=== PATIENT | male | born 1935 | race Caucasian/White ===

== ENCOUNTER → 2016-07-27 | Outpatient (CLI) | payer BC ==
[~2016-07-27] VITALS: Ht 177.8 cm; Wt 100.7 kg
[~2016-07-27] MED LIST: AMLO-110 PO; ASPI81TA82 PO; BCTCR/30 EXT; FLNIN NAE; LISI-792 PO; METF-382 PO; METO1TAB68 PO; MULTTAB45 PO; SIMV20TA2 PO
[2016-07-27 14:18] VITALS: BP 171/76; PULSE 56; Ht 177.8 cm; Wt 100.7 kg
== END | disposition home or self-care (01) ==
LOC: C.NEUR 13:09
PROVIDERS: ATTEND Internal Medicine Pulmonary Disease
DX: G47.33 Obstructive sleep apnea (adult) (pediatric) (principal)

== ENCOUNTER → 2016-09-11 | Outpatient (CLI) | payer BC ==
[~2016-09-11] MED LIST changes: +ASPI81TA28 PO; +FLUT0.15 NAE; +GLIM4TAB2 PO; +METO-479 PO; -METO1TAB68 PO
[2016-09-11 12:00] LABS: BASO % 0.3 %; BASO ABS # 0.02 K/uL (0-0.2); COMPLETE YES; EOS % 1.4 %; HEMATOCRIT 41.3 % (42-52); IG% 0.5 %; LYMPH % 21.1 %; LYMPH ABS # 1.54 K/uL (1.2-3.4); MEAN CELL VOLUME 96.5 fL (80-100); MEAN CORPUSCULAR HEMOGLOBIN 31.5 pg (25-34); MEAN CORPUSCULAR HGB CONC 32.7 g/dl (32-36); MEAN PLATELET VOLUME 9.7 fL (7.4-10.4); MONO % 8.9 %; NEUT % 67.8 %; PLATELET COUNT 227 K/uL (130-400); RED BLOOD COUNT 4.28 M/uL (4.7-6.1)
[2016-09-11 13:06] LABS: ALT/SGPT 25 U/L (12-78); AST/SGOT 17 U/L (15-37); BLOOD UREA NITROGEN 23 mg/dl (7-18); CALCIUM 8.9 mg/dl (8.5-10.1); CARBON DIOXIDE 27 mmol/L (21-32); CHLORIDE 105 mmol/L (98-107); CHOLESTEROL 172 mg/dl (0-200); CHOLESTEROL/HDL RATIO 2.7; GLUCOSE 127 mg/dl (70-99); HDL CHOLESTEROL 64 mg/dl; LDL CHOLESTEROL CALCULATED 81 mg/dl; POTASSIUM 4.9 mmol/L (3.5-5.1); SODIUM 138 mmol/L (136-145); TRIGLYCERIDES 134 mg/dl (0-150); VERY LOW DENSITY LIPOPROT CALC 27 mg/dl
[2016-09-11 13:08] LABS: ALKALINE PHOSPHATASE 65 U/L (45-117)
[2016-09-11 14:07] LABS: ESTIMATED AVERAGE GLUCOSE 140 mg/dl; HA1C FLAG Normal (Normal)
== END | disposition home or self-care (01) ==
LOC: C.LABBFT 09:48
PROVIDERS: ATTEND Internal Medicine
DX: E11.9 Type 2 diabetes mellitus without complications (principal)

== ENCOUNTER → 2017-01-25 | Outpatient (CLI) | payer BC ==
[~2017-01-25] VITALS: Ht 177.8 cm; Wt 99.5 kg
[~2017-01-25] MED LIST changes: -ASPI81TA28 PO; -FLUT0.15 NAE; -GLIM4TAB2 PO; -METO-479 PO; +METO1TAB68 PO
[2017-01-25 15:08] VITALS: BP 148/74; PULSE 73; Ht 177.8 cm; Wt 99.5 kg
== END | disposition home or self-care (01) ==
LOC: C.NEUR 14:55
PROVIDERS: ATTEND Physician Assistant
DX: G47.33 Obstructive sleep apnea (adult) (pediatric) (principal)

== ENCOUNTER → 2017-03-08 | Outpatient (CLI) | payer BC ==
[2017-03-08 12:32] LABS: BASO % 0.1 %; BASO ABS # 0.01 K/uL (0-0.2); COMPLETE YES; EOS % 2.5 %; HEMATOCRIT 39.6 % (42-52); IG% 0.6 %; LYMPH % 17.6 %; LYMPH ABS # 1.36 K/uL (1.2-3.4); MEAN CELL VOLUME 96.4 fL (80-100); MEAN CORPUSCULAR HEMOGLOBIN 32.1 pg (25-34); MEAN CORPUSCULAR HGB CONC 33.3 g/dl (32-36); MEAN PLATELET VOLUME 9.8 fL (7.4-10.4); MONO % 12.9 %; NEUT % 66.3 %; PLATELET COUNT 234 K/uL (130-400); RED BLOOD COUNT 4.11 M/uL (4.7-6.1); WHITE BLOOD COUNT 7.74 K/uL (4.8-10.8)
[2017-03-08 13:02] LABS: ESTIMATED AVERAGE GLUCOSE 137 mg/dl; HA1C FLAG Normal (Normal)
[2017-03-08 13:15] LABS: ALT/SGPT 23 U/L (12-78); BLOOD UREA NITROGEN 27 mg/dl (7-18); BUN/CREATININE RATIO 19.4 (10-20); CALCIUM 8.8 mg/dl (8.5-10.1); CARBON DIOXIDE 26 mmol/L (21-32); CHLORIDE 104 mmol/L (98-107); CHOLESTEROL 165 mg/dl (0-200); GLUCOSE 115 mg/dl (70-99); SODIUM 136 mmol/L (136-145)
[2017-03-08 13:20] LABS: ALB/GLOB RATIO 0.9 (0.9-2); ALKALINE PHOSPHATASE 63 U/L (45-117); AST/SGOT 16 U/L (15-37); CHOLESTEROL/HDL RATIO 3.2; HDL CHOLESTEROL 51 mg/dl; LDL CHOLESTEROL CALCULATED 84 mg/dl; PROSTATE SPECIFIC ANTIGEN < 0.010 ng/ml (0.000-4.000); TRIGLYCERIDES 151 mg/dl (0-150); VERY LOW DENSITY LIPOPROT CALC 30 mg/dl
== END | disposition home or self-care (01) ==
LOC: C.LABBFT 08:22
PROVIDERS: ATTEND Internal Medicine
DX: E11.9 Type 2 diabetes mellitus without complications (principal)

== ENCOUNTER → 2017-05-07 | Day surgery (SDC) | payer BC ==
[2017-04-09 10:53] VITALS: Ht 177.8 cm; Wt 97.7 kg
[~2017-05-07] VITALS: Ht 177.8 cm; Wt 97.7 kg
[~2017-05-07] MED LIST changes: +500ML BSS 0.3ML EPI 1:1000PF IRRIG ONE; +ACETAMINOPHEN 325 MG TAB PO PRN; +AMVISC PLUS 0.8ML SYRINGE INT OCU ONE; +ASPI81TA28 PO; -ASPI81TA82 PO; +ATROPINE SULFATE 0.1 MG/ML 5ML SYR IV PRN; -BCTCR/30 EXT; +BSS FLUSH ONE; +EpHEDrine SULFATE INJ 50 MG/ML AMP IV PRN; +EpINEphrine INJ 1MG/ML AMP 1 MG/ML AMP ONE; -FLNIN NAE; +FLUT0.15 NAE; +GLIM4TAB2 PO; +LACTATED RINGER'S 1000ML 500 ML IV SCH; +LIDOCAINE 3.5% OPH GEL PER APPLICATION CHARGE ONE; +LIDOCAINE HCL 1% MPF 2 ML VIAL ONE; +METO-479 PO; -METO1TAB68 PO; +MIDAZOLAM HCL 1 MG/ML 2ML VIAL ONE; +OCUCOAT 1 ML SOLN IO ONE; +PHENYLEPHRINE HCL 10% OP SOLN PER DROP CHARGE OPL SCH; +POVIDONE-IODINE OP SOLN 30 ML BTL ONE; +PROPARACAINE 0.5% OP SOLN PER DROP CHARGE OPL SCH; +TOBRAMYCIN/DEXAMETHASONE OPH OINT PER APPLN CHARGE ONE
[2017-05-07] MEDS: PHENYLEPHRINE HCL 2.5% OP SOLN PER DROP CHARGE OPL SCH ×2 (06:56→07:06)
[2017-05-07] MEDS: TROPICAMIDE 1% OP SOLN PER DROP CHARGE OPL SCH ×2 (06:57→07:07)
[2017-05-07] MEDS: CYCLOPENTOLATE HCL 1% OP SOLN PER DROP CHARGE OPL SCH ×2 (06:58→07:08)
[2017-05-07] MEDS: KETOROLAC 0.5% OP SOLN PER DROP CHARGE OPL SCH ×2 (06:59→07:09)
[2017-05-07] MEDS: GATIFLOXACIN OP SOLN PER DROP CHARGE OPL SCH ×2 (07:00→07:10)
--- NOTE | 2017-05-07 07:49 | History & Physical Bridge - SC ---
H&P Re-Evaluation Bridge Note: I have examined the patient, reviewed the History & Physical and in the interval since the performance of the History & Physical I have noted the following changes of clinical significance: Diagnosis: Left Cataract Procedure: Left Cataract Removal with Lens Implant No changes noted
--- NOTE | 2017-05-07 08:22 | Discharge Instructions-SurgCtr ---
Discharge Instructions Date of Service May 07, 2017. Visit Reason for Visit: Left Cataract Discharge Discharge Diagnosis / Problem: cataract Discharge Goals Goal(s): Improve function Medications Stopped Medications Name(s): Metformin stopped 2 days ago Activity Recommendations Activity Limitations: per Instructions/Follow-up section Anesthesia . Post Anesthesia Instructions: If you have had General Anesthesia or IV Sedation: * Do not drive today. * Resume driving when surgeon permits. * Do not make important decisions or sign legal documents today. * Call surgeon for: 1. Temperature elevations greater than 101 degrees F. 2. Uncontrollable pain. 3. Excessive bleeding. 4. Persistent nausea and vomiting. 5. Medication intolerance (nausea, vomiting or rash). * For nausea and vomiting use only clear liquids such as: tea, soda, bouillon until nausea subsides, then gradually increase diet as tolerated. * If you have any concerns or questions, call your surgeon's office. If physician is unavailable and it is an emergency, call 911 or go to the nearest emergency room. . Diet Recommendations Home Diet: resume previous diet Procedures Procedures Performed: Left Cataract Phacoemulsification With Intraocular Lens Implant Pending Studies Studies pending at discharge: no Medical Emergencies . Who to Call and When: Medical Emergencies: If at any time you feel your situation is an emergency, please call 911 immediately. . Non-Emergent Contact Non-Emergency issues call your: [employer] . . "Provider Documentation" section prepared by Moi Siegel. .
--- NOTE | 2017-05-07 08:22 | [facility] Operative Report ---
Operative Report Date of Service May 07, 2017. Operative Report 1. PREOPERATIVE DIAGNOSIS: Cataract of the left eye. 2. POSTOPERATIVE DIAGNOSIS: Same. 3. PROCEDURE: Phacoemulsification with intraocular lens implantation of the left eye. SURGEON: Dr. Moi Siegel. ANESTHESIA: Topical Lidocaine gel, 1% Non- Preserved intracameral Lidocaine, and monitored intravenous sedation. INDICATIONS FOR THE PROCEDURE: The patient is a 81 - year-old male with a history of cataract of the left eye causing significant visual impairment. The details of the proposed procedure were explained to the patient who asked appropriate questions and following discussion of all risks, benefits and alternatives agreed to have the procedure done. 4. OPERATION AND FINDINGS: DESCRIPTION OF PROCEDURE: After informed consent was obtained, the patient was brought to the Operating Room at the [facility]. The patient was placed in a supine position and then the left eye was prepped and draped in the usual sterile fashion for intraocular surgery. A drop of topical Lidocaine gel was placed in the operative eye. A wire lid speculum was then placed in the fornices. A corneal paracentesis was then created temporally. The Non-Preserved Lidocaine was then instilled into the anterior chamber. The anterior chamber was then pressurized with viscoelastic. A 2.0 mm clear corneal incision was then created temporally. A cystotome was inserted into the anterior chamber and used to create a tear in the anterior lens capsule. This capsular tear was then used to create a small flap and the flap was dragged in a counterclockwise direction in order to create a continuous curvilinear capsulorrhexis. Hydrodissection was accomplished with balanced salt solution. Phacoemulsification of the lens nucleus was then performed in a standard horqai-txa-ylyayee technique. The phaco time was 22 seconds with an average power of 16 %. The remaining cortical material was removed using irrigation aspiration. The capsular bag was then filled with viscoelastic. A [employer]ch [employer] Lomb MI60L +22.5 diopters lens was then loaded into the injector and injected into the capsular bag. The remaining viscoelastic was removed with the irrigation aspiration handpiece. The wound was hydrated and then checked and found to be watertight. The intraocular pressure was checked and found to be adequate. The wire lid speculum was removed and the patient's face was cleaned and dried. TobraDex ointment was placed in the inferior fornix. The patient was discharged to the Recovery Room having tolerated the procedure well. There were no complications. The patient will be seen tomorrow in the office for follow-up. I attest to the content of the Intraoperative Record and any orders documented therein. Any exceptions are noted below.
--- NOTE | 2017-05-07 08:48 | Anesthesia Progress Nt - [facility] ---
Anesthesia Post Op Note Date & Time May 07, 2017 at 08:47 Vital Signs Pain Intensity: 0 Vital Signs Past 12 Hours Date Time Temp Pulse Resp B/P (MAP) Pulse Ox O2 Delivery O2 Flow Rate FiO2 05/07/17 08:30 36.6 61 16 168/83 (111) 95 Room Air 05/07/17 06:44 36.5 62 16 180/91 (120) 95 Room Air Notes Mental Status: alert / awake / arousable, participated in evaluation Pt Amnestic to Procedure: No Nausea / Vomiting: adequately controlled Pain: adequately controlled Airway Patency, RR, SpO2: stable & adequate BP & HR: stable & adequate Hydration State: stable & adequate Anesthetic Complications: no major complications apparent Non distressing recall as discussed preop
[2017-05-07 09:01] VITALS: BP 165/79; PULSE 56; TEMP 36.6; O2SAT 97
== END | disposition home or self-care (01) ==
LOC: X.SURG 06:36
PROVIDERS: ATTEND Ophthalmology
DX: E11.36 Type 2 diabetes mellitus with diabetic cataract (principal); E11.22 Type 2 diabetes mellitus with diabetic chronic kidney disease; I12.9 Hypertensive chronic kidney disease with stage 1 through stage 4 chronic kidney disease, or unspecified chronic kidney disease; N18.3 Chronic kidney disease, stage 3 (moderate); G47.33 Obstructive sleep apnea (adult) (pediatric); D64.9 Anemia, unspecified; Z79.899 Other long term (current) drug therapy

== ENCOUNTER → 2017-06-06 | Day surgery (SDC) | payer BC ==
[2017-05-14 13:50] VITALS: Ht 177.8 cm; Wt 97.7 kg
[~2017-06-06] VITALS: Ht 177.8 cm; Wt 97.7 kg
[~2017-06-06] MED LIST changes: +FENTANYL CITRATE INJ 50 MCG/1 ML 2 ML VIAL ONE; +HydrALAZINE HCL 20 MG/ML VIAL ONE; -MIDAZOLAM HCL 1 MG/ML 2ML VIAL ONE; -PHENYLEPHRINE HCL 10% OP SOLN PER DROP CHARGE OPL SCH; +PHENYLEPHRINE HCL 10% OP SOLN PER DROP CHARGE OPR SCH; -PROPARACAINE 0.5% OP SOLN PER DROP CHARGE OPL SCH; +PROPARACAINE 0.5% OP SOLN PER DROP CHARGE OPR SCH
[2017-06-06] MEDS: PHENYLEPHRINE HCL 2.5% OP SOLN PER DROP CHARGE OPR SCH ×2 (06:42→06:53)
[2017-06-06] MEDS: TROPICAMIDE 1% OP SOLN PER DROP CHARGE OPR SCH ×2 (06:43→06:54)
[2017-06-06] MEDS: CYCLOPENTOLATE HCL 1% OP SOLN PER DROP CHARGE OPR SCH ×2 (06:44→06:55)
[2017-06-06] MEDS: KETOROLAC 0.5% OP SOLN PER DROP CHARGE OPR SCH ×2 (06:45→06:56)
[2017-06-06] MEDS: GATIFLOXACIN OP SOLN PER DROP CHARGE OPR SCH ×2 (06:46→06:57)
--- NOTE | 2017-06-06 07:05 | History & Physical Bridge - SC ---
H&P Re-Evaluation Bridge Note: I have examined the patient, reviewed the History & Physical and in the interval since the performance of the History & Physical I have noted the following changes of clinical significance: No changes noted
--- NOTE | 2017-06-06 07:53 | [facility] Operative Report ---
Operative Report Date of Service Jun 06, 2017. Operative Report 1. PREOPERATIVE DIAGNOSIS: Cataract of the right eye. 2. POSTOPERATIVE DIAGNOSIS: Same. 3. PROCEDURE: Phacoemulsification with intraocular lens implantation of the right eye. SURGEON: Dr. Moi Siegel. ANESTHESIA: Topical Lidocaine gel, 1% Non- Preserved intracameral Lidocaine, and monitored intravenous sedation. INDICATIONS FOR THE PROCEDURE: The patient is a 81 - year-old male with a history of cataract of the right eye causing significant visual impairment. The details of the proposed procedure were explained to the patient who asked appropriate questions and following discussion of all risks, benefits and alternatives agreed to have the procedure done. 4. OPERATION AND FINDINGS: DESCRIPTION OF PROCEDURE: After informed consent was obtained, the patient was brought to the Operating Room at the [facility]. The patient was placed in a supine position and then the right eye was prepped and draped in the usual sterile fashion for intraocular surgery. A drop of topical Lidocaine gel was placed in the operative eye. A wire lid speculum was then placed in the fornices. A corneal paracentesis was then created temporally. The Non-Preserved Lidocaine was then instilled into the anterior chamber. The anterior chamber was then pressurized with viscoelastic. A 2.0 mm clear corneal incision was then created temporally. A cystotome was inserted into the anterior chamber and used to create a tear in the anterior lens capsule. This capsular tear was then used to create a small flap and the flap was dragged in a counterclockwise direction in order to create a continuous curvilinear capsulorrhexis. Hydrodissection was accomplished with balanced salt solution. Phacoemulsification of the lens nucleus was then performed in a standard otecoq-iqp-ituiqwa technique. The phaco time was 27 seconds with an average power of 6 %. The remaining cortical material was removed using irrigation aspiration. The capsular bag was then filled with viscoelastic. A Bausch [employer] Lomb MI60L +23.0 diopters lens was then loaded into the injector and injected into the capsular bag. The remaining viscoelastic was removed with the irrigation aspiration handpiece. The wound was hydrated and then checked and found to be watertight. The intraocular pressure was checked and found to be adequate. The wire lid speculum was removed and the patient's face was cleaned and dried. TobraDex ointment was placed in the inferior fornix. The patient was discharged to the Recovery Room having tolerated the procedure well. There were no complications. The patient will be seen tomorrow in the office for follow-up. I attest to the content of the Intraoperative Record and any orders documented therein. Any exceptions are noted below.
--- NOTE | 2017-06-06 07:54 | Discharge Instructions-SurgCtr ---
Discharge Instructions Date of Service Jun 06, 2017. Visit Reason for Visit: Cataract Right Eye Discharge Discharge Diagnosis / Problem: cataract Discharge Goals Goal(s): Improve function Medications Stopped Medications Name(s): metformin stopped- last dose saturday Activity Recommendations Activity Limitations: per Instructions/Follow-up section Anesthesia . Post Anesthesia Instructions: If you have had General Anesthesia or IV Sedation: * Do not drive today. * Resume driving when surgeon permits. * Do not make important decisions or sign legal documents today. * Call surgeon for: 1. Temperature elevations greater than 101 degrees F. 2. Uncontrollable pain. 3. Excessive bleeding. 4. Persistent nausea and vomiting. 5. Medication intolerance (nausea, vomiting or rash). * For nausea and vomiting use only clear liquids such as: tea, soda, bouillon until nausea subsides, then gradually increase diet as tolerated. * If you have any concerns or questions, call your surgeon's office. If physician is unavailable and it is an emergency, call 911 or go to the nearest emergency room. . Diet Recommendations Home Diet: resume previous diet Procedures Procedures Performed: Right Cataract Phacoemulsification With Intraocular Lens Implant Pending Studies Studies pending at discharge: no Medical Emergencies . Who to Call and When: Medical Emergencies: If at any time you feel your situation is an emergency, please call 911 immediately. . Non-Emergent Contact Non-Emergency issues call your: [employer] . . "Provider Documentation" section prepared by Moi Siegel. .
[2017-06-06 07:57] VITALS: TEMP 36.7
[2017-06-06 08:27] VITALS: BP 129/75; PULSE 61; O2SAT 96
== END | disposition home or self-care (01) ==
LOC: X.SURG 06:07
PROVIDERS: ATTEND Ophthalmology
DX: E11.36 Type 2 diabetes mellitus with diabetic cataract (principal); E11.22 Type 2 diabetes mellitus with diabetic chronic kidney disease; I12.9 Hypertensive chronic kidney disease with stage 1 through stage 4 chronic kidney disease, or unspecified chronic kidney disease; N18.3 Chronic kidney disease, stage 3 (moderate); D64.9 Anemia, unspecified; Z79.84 Long term (current) use of oral hypoglycemic drugs; Z79.899 Other long term (current) drug therapy; G47.33 Obstructive sleep apnea (adult) (pediatric); Z85.46 Personal history of malignant neoplasm of prostate

== ENCOUNTER → 2017-07-25 | Outpatient (CLI) | payer BC ==
[~2017-07-25] VITALS: Ht 177.8 cm; Wt 100.2 kg
[~2017-07-25] MED LIST changes: -500ML BSS 0.3ML EPI 1:1000PF IRRIG ONE; -ACETAMINOPHEN 325 MG TAB PO PRN; -AMVISC PLUS 0.8ML SYRINGE INT OCU ONE; -ATROPINE SULFATE 0.1 MG/ML 5ML SYR IV PRN; -BSS FLUSH ONE; -EpHEDrine SULFATE INJ 50 MG/ML AMP IV PRN; -EpINEphrine INJ 1MG/ML AMP 1 MG/ML AMP ONE; -FENTANYL CITRATE INJ 50 MCG/1 ML 2 ML VIAL ONE; -HydrALAZINE HCL 20 MG/ML VIAL ONE; -LACTATED RINGER'S 1000ML 500 ML IV SCH; -LIDOCAINE 3.5% OPH GEL PER APPLICATION CHARGE ONE; -LIDOCAINE HCL 1% MPF 2 ML VIAL ONE; -OCUCOAT 1 ML SOLN IO ONE; -PHENYLEPHRINE HCL 10% OP SOLN PER DROP CHARGE OPR SCH; -POVIDONE-IODINE OP SOLN 30 ML BTL ONE; -PROPARACAINE 0.5% OP SOLN PER DROP CHARGE OPR SCH; -TOBRAMYCIN/DEXAMETHASONE OPH OINT PER APPLN CHARGE ONE
[2017-07-25 13:34] VITALS: BP 143/76; PULSE 75; Ht 177.8 cm; Wt 100.2 kg
== END | disposition home or self-care (01) ==
LOC: C.NEUR 12:56
PROVIDERS: ATTEND Physician Assistant
DX: G47.33 Obstructive sleep apnea (adult) (pediatric) (principal)

== ENCOUNTER → 2017-09-05 | Outpatient (CLI) | payer BC ==
[2017-09-05 12:35] LABS: BASO % 0.2 %; BASO ABS # 0.01 K/uL (0-0.2); EOS % 2.1 %; EOS ABS # 0.14 K/uL (0-0.5); HEMATOCRIT 40.5 % (42-52); HEMOGLOBIN 13.4 g/dL (14.0-18.0); IG# 0.03 K/uL (0.00-0.02); LYMPH % 25.3 %; LYMPH ABS # 1.65 K/uL (1.2-3.4); MEAN CORPUSCULAR HEMOGLOBIN 31.8 pg (25-34); MEAN CORPUSCULAR HGB CONC 33.1 g/dl (32-36); MEAN PLATELET VOLUME 9.7 fL (7.4-10.4); MONO % 11.9 %; MONO ABS # 0.78 K/uL (0.11-0.59); NEUT ABS # 3.92 K/uL (1.4-6.5); PLATELET COUNT 235 K/uL (130-400); RED CELL DISTRIBUTION WIDTH CV 13.3 % (11.5-14.5); RED CELL DISTRIBUTION WIDTH SD 45.7 fL (36.4-46.3); WHITE BLOOD COUNT 6.53 K/uL (4.8-10.8)
[2017-09-05 13:02] LABS: HEMOGLOBIN A1C 6.8 % (4.5-5.6)
[2017-09-05 13:36] LABS: ALBUMIN 3.8 gm/dl (3.4-5.0); ALT/SGPT 31 U/L (12-78); AST/SGOT 22 U/L (15-37); BLOOD UREA NITROGEN 26 mg/dl (7-18); CALCIUM 9.1 mg/dl (8.5-10.1); CARBON DIOXIDE 27 mmol/L (21-32); CREATININE 1.45 mg/dl (0.60-1.40); GLUCOSE 123 mg/dl (70-99); POTASSIUM 4.9 mmol/L (3.5-5.1); SODIUM 134 mmol/L (136-145)
[2017-09-05 13:47] LABS: ALKALINE PHOSPHATASE 67 U/L (45-117); CHOLESTEROL 159 mg/dl (0-200); LDL CHOLESTEROL CALCULATED 80 mg/dl; TOTAL PROTEIN 8.1 gm/dl (6.4-8.2)
== END | disposition home or self-care (01) ==
LOC: C.LABBFT 09:23
PROVIDERS: ATTEND Internal Medicine
DX: I10 Essential (primary) hypertension (principal); E78.5 Hyperlipidemia, unspecified; G47.33 Obstructive sleep apnea (adult) (pediatric); E11.9 Type 2 diabetes mellitus without complications; D64.9 Anemia, unspecified

== ENCOUNTER → 2017-09-26 | Outpatient (CLI) | payer BC ==
[~2017-09-26] MED LIST changes: +GLC/500 PO; +HYDR0.75 PO; +LEVO1TAB33 PO; +PRED10TA
--- NOTE | 2017-09-26 11:16 | DIAGNOSTIC IMAGING REPORT ---
CHEST 2 VIEWS ROUTINE HISTORY: 82 years-old Male J18.9 Community acquired pneumonia acute pneumonia COMPARISON: Chest radiographs 09/15/2015, CTA chest 10/06/2015 TECHNIQUE: PA and lateral views of the chest FINDINGS: Cardiomediastinal and hilar silhouettes are within normal limits. No pneumothorax or pleural effusion. There are subsegmental alveolar opacities of the basal right lower lobe. The left lung is clear. Degenerative changes of the shoulders and spine. Lungs appear grossly intact. IMPRESSION: Subsegmental alveolar opacities of the basal right lower lobe are suspicious for pneumonia in the appropriate clinical setting. The above report was generated using voice recognition software. It may contain grammatical, syntax or spelling errors. Electronically signed by: Nawaf Sheridan M.D. 09/26/2017 11:15 AM Dictated Date/Time: 09/26/2017 11:13 AM
== END | disposition home or self-care (01) ==
LOC: C.RAD1850 11:01
PROVIDERS: ATTEND Nurse Practitioner
DX: J18.9 Pneumonia, unspecified organism (principal)

== ENCOUNTER 2017-09-28 08:19 | Inpatient (IN) | payer BC, OTHER ==
[~2017-09-28] VITALS: Ht 177.8 cm; Wt 95.0 kg
[~2017-09-28 08:19] MED LIST changes: -GLC/500 PO; -HYDR0.75 PO; -LEVO1TAB33 PO; -PRED10TA
[2017-09-28] MEDS ORDERED: ALBUT/IPRATROP 3MG/0.5MG NEB 3 ML VIAL INH STA (08:37)
[2017-09-28] MEDS ORDERED: GLC/500 PO (09:11)
[2017-09-28] MEDS ORDERED: HYDR0.75 PO (09:11)
[2017-09-28] MEDS ORDERED: LEVO1TAB33 PO (09:11)
[2017-09-28] MEDS ORDERED: PRED10TA (09:11)
--- NOTE | 2017-09-28 09:11 | EMERGENCY ROOM VISIT NOTE ---
History Report prepared by Julian: [facility] Under the Supervision of: Dr. Song Blakcmon D.O. First contact with patient: 08:28 Chief Complaint: RESPIRATORY PROBLEMS Stated Complaint: DIFFICULTY BREATHING History of Present Illness The patient is a 82 year old male who presents to the Emergency Room with complaints of worsening respiratory problems that began 10 days ago. Patient states that he feels congested and has a productive cough. Patient states he has intermittent chills. He denies coughing up blood. Patient states that he has a history of similar symptoms. Pertinent past medical history includes bronchitis. Patient states that he had an X-ray done two days ago that showed pneumonia. He states that he was discharged with Levaquin, Prednisone, and cough medication. Patient states that he was originally started on an inhaler. He states that he did not take Levaquin before arriving at the ED. He denies fevers, nausea, or vomiting. Patient denies a history of clots in his legs or lungs. He denies leg pain or swelling. He denies chest pain. Patient states that he lives at home and denies being exposed to anything that could have caused his symptoms. Patient states that he has seen Pat TRINIDAD in [place] recently. Source of History: patient Onset: 10 days ago Position: other (Lungs) Timing: worsening Modifying Factors (Relieving): other (None) Associated Symptoms: + chills, + cough (Productive), No fevers, No chest pain, No nausea, No vomiting Review of Systems See HPI for pertinent positives & negatives. A total of 10 systems reviewed and were otherwise negative. Past Medical & Surgical Medical Problems: (1) Acute bronchitis (2) Anemia (3) Atrial fibrillation (4) Closed fracture of pelvis Family History Omitted secondary to age. Social History Smoking Status: Never Smoker Marital Status: Housing Status: lives with family Occupation Status: retired Current/Historical Medications Scheduled Amlodipine (Norvasc), 5 MG PO QAM Aspirin (Aspirin Ec), 81 MG PO QAM Glimepiride (Glimepiride), 4 MG PO DAILY Hydrocodone/Homatropine (Hydromet), 5 ML PO Q4H Levofloxacin (Levaquin), 500 MG PO DAILY Lisinopril (Zestril), 20 MG PO QAM Metformin Hcl (Glucophage), 500 MG PO BID Metoprolol Succinate (Toprol Xl), 100 MG PO QAM Multiple Vitamin (Multiple Vitamin), 1 TABLET PO QAM Simvastatin (Zocor), 20 MG PO QPM Scheduled PRN Fluticasone Propionate (Nasal) (Flonase Allergy Relief), 1 SPRAY GLORIA DAILY PRN for SINUS CONGESTION Miscellaneous Medications Prednisone (Prednisone) Allergies Coded Allergies: Nystatin (Verified Allergy, Unknown, UNKNOWN, 09/28/17) Triamcinolone (Verified Allergy, Unknown, UNKNOWN, 09/28/17) Physical Exam Vital Signs Date Time Temp Pulse Resp B/P (MAP) Pulse Ox O2 Delivery O2 Flow Rate FiO2 09/28/17 10:36 94 Room Air 09/28/17 09:49 92 20 136/82 94 Room Air 09/28/17 08:59 90 09/28/17 08:53 95 Room Air 09/28/17 08:53 95 Room Air 09/28/17 08:23 36.5 89 20 132/78 96 Room Air Physical Exam GENERAL: Patient is awake, alert, and in no acute distress. Patient is resting comfortably and showing no signs of anxiety EYES: The conjunctivae are clear. The pupils are round and reactive. EARS, NOSE, MOUTH AND THROAT: The nose is without any evidence of any deformity. Mucous membranes are moist tongue is midline NECK: The neck is nontender and supple. RESPIRATORY: Lung sounds are diminished throughout with rales in the right lung bases. Expiratory wheezing noted in both upper lung fox. CARDIOVASCULAR: Regular rate and rhythm noted there no murmurs rubs or gallops normal S1 normal S2 GASTROINTESTINAL: The abdomen is soft. Bowel sounds are present in all quadrants. Abdomen is nontender MUSCULOSKELETAL/EXTREMITIES: There is no evidence of gross deformity full range of motion is noted in the hips and shoulders SKIN: Pedal edema bilaterally. There is no obvious evidence of any rash. There are no petechiae, pallor or cyanosis noted. NEUROLOGIC: Patient is awake alert and oriented x3. Medical Decision & Procedures ER Provider Diagnostic Interpretation: Radiology results as stated below per my review and radiologist interpretation: CHEST ONE VIEW PORTABLE CLINICAL HISTORY: 82 years-old Male presenting with EVALUATE RESPIRATORY DISTRESS.DYSPNEA. TECHNIQUE: Portable upright AP view of the chest was obtained. COMPARISON: 09/26/2017. FINDINGS: Cardiomediastinal silhouette normal. Mildly low lung volumes. No focal opacity. Previously suggested right basilar opacity is no longer present. No large pleural effusion or pneumothorax. Degenerative changes of the thoracic spine. Upper abdomen normal. IMPRESSION: 1. No acute cardiopulmonary disease. Electronically signed by: Ye Coyle M.D. 09/28/2017 9:14 AM Laboratory Results 09/28/17 08:50 Red Blood Count 4.05, Mean Corpuscular Volume 93.8, Mean Corpuscular Hemoglobin 32.3, Mean Corpuscular Hemoglobin Concent 34.5, Mean Platelet Volume 8.9, Neutrophils (%) (Auto) 75.6, Lymphocytes (%) (Auto) 11.3, Monocytes (%) (Auto) 10.8, Eosinophils (%) (Auto) 0.1, Basophils (%) (Auto) 0.1, Neutrophils # (Auto ) 11.63, Lymphocytes # (Auto) 1.74, Monocytes # (Auto) 1.67, Eosinophils # (Auto ) 0.02, Basophils # (Auto) 0.02 09/28/17 08:50 Test 09/28/17 08:50 White Blood Count 15.40 K/uL (4.8-10.8) Red Blood Count 4.05 M/uL (4.7-6.1) Hemoglobin 13.1 g/dL (14.0-18.0) Hematocrit 38.0 % (42-52) Mean Corpuscular Volume 93.8 fL (80-100) Mean Corpuscular Hemoglobin 32.3 pg (25-34) Mean Corpuscular Hemoglobin Concent 34.5 g/dl (32-36) Platelet Count 324 K/uL (130-400) Mean Platelet Volume 8.9 fL (7.4-10.4) Neutrophils (%) (Auto) 75.6 % Lymphocytes (%) (Auto) 11.3 % Monocytes (%) (Auto) 10.8 % Eosinophils (%) (Auto) 0.1 % Basophils (%) (Auto) 0.1 % Neutrophils # (Auto) 11.63 K/uL (1.4-6.5) Lymphocytes # (Auto) 1.74 K/uL (1.2-3.4) Monocytes # (Auto) 1.67 K/uL (0.11-0.59) Eosinophils # (Auto) 0.02 K/uL (0-0.5) Basophils # (Auto) 0.02 K/uL (0-0.2) RDW Standard Deviation 45.1 fL (36.4-46.3) RDW Coefficient of Variation 13.2 % (11.5-14.5) Immature Granulocyte % (Auto) 2.1 % Immature Granulocyte # (Auto) 0.32 K/uL (0.00-0.02) Prothrombin Time 9.6 SECONDS (9.0-12.0) Prothromb Time International Ratio 0.9 (0.9-1.1) Activated Partial Thromboplast Time 22.6 SECONDS (21.0-31.0) Partial Thromboplastin Ratio 0.9 Anion Gap 10.0 mmol/L (3-11) Est Creatinine Clear Calc Drug Dose 38.2 ml/min Estimated GFR () 42.3 Estimated GFR (Non- 36.5 BUN/Creatinine Ratio 21.7 (10-20) Calcium Level 8.7 mg/dl (8.5-10.1) Magnesium Level 2.5 mg/dl (1.8-2.4) Total Bilirubin 0.6 mg/dl (0.2-1) Aspartate Amino Transf (AST/SGOT) 24 U/L (15-37) Alanine Aminotransferase (ALT/SGPT) 47 U/L (12-78) Alkaline Phosphatase 64 U/L (45-117) Troponin I < 0.015 ng/ml (0-0.045) Pro-B-Type Natriuretic Peptide 7059 pg/ml (0-1800) Total Protein 7.9 gm/dl (6.4-8.2) Albumin 3.1 gm/dl (3.4-5.0) Globulin 4.8 gm/dl (2.5-4.0) Albumin/Globulin Ratio 0.7 (0.9-2) Thyroid Stimulating Hormone (TSH) 0.656 uIu/ml (0.300-4.500) Laboratory results per my review. Medications Administered Medications (Trade) Dose Ordered Sig/Arnaldo Route Start Time Stop Time Status Last Admin Dose Admin Albuterol/ Ipratropium (Duoneb) 3 ml NOW STAT INH 09/28/17 08:37 09/28/17 08:38 DC 09/28/17 08:53 3 ML Doxycycline Hyclate (Vibramycin Cap) 100 mg NOW STAT PO 09/28/17 11:18 09/28/17 11:30 DC 09/28/17 13:09 100 MG Guaifenesin (Mucinex Contr Rel Tab) 1,200 mg 1118 ONCE PO 09/28/17 11:18 09/28/17 11:30 DC 09/28/17 13:09 1,200 MG ECG Per My Interpretation Indication: SOB/dyspnea Rate (beats per minute): 102 Rhythm: atrial fibrillation Findings: PVC (PVCs noted), RBBB (RBBB pattern noted) Comparison ECG Date: 02/25/13 Change: Changes are new. ED Course 0830: The patient was evaluated in room B10. A complete history and physical examination were performed. 0837: Duoneb 3ml INH 1023: Upon reevaluation, the patient will be further evaluated. I discussed results and treatment plan with him. He verbalizes agreement and understanding. I spoke with [place]. Bhatt of the [facility] The patient will be evaluated for further management and care. Medical Decision Prior records/ancillary studies reviewed. Triage Nursing notes reviewed. Additional history obtained from the family. The patient's history was concerning for respiratory difficulties. Differential diagnosis: Etiologies such as infections, reactive airway disease, pneumonia, pneumothorax , COPD, CHF, cardiac ischemia, pulmonary embolism, musculoskeletal, gastrointestinal, as well as others were entertained. The patient is an 82-year-old male who presented to the emergency department for an evaluation of difficulty breathing. The patient was started on antibiotic for presumed bronchitis and possible pneumonia. The patient had a chest x-ray which did reveal some signs of pneumonia. He was treated with DuoNeb therapy in the emergency department. The patient was found to be in atrial fibrillation which appears to be a new diagnosis for him. I discussed patient's laboratory and radiographic studies with him. He appears to be having some degree of pulmonary edema secondary to atrial fibrillation. This reason I discussed his case with the on-call [facility] hospitalist group. They have agreed to evaluate patient in the emergency department for further management and disposition. Medication Reconcilliation Current Medication List: was personally reviewed by me Blood Pressure Screening Patient's blood pressure: Elevated blood pressure Addressed as an inpatient. Consults Time Called: 1011 Consulting Physician: Dr. Bhatt - [facility] Returned Call: [phone] I discussed the patient's case with Dr. Linares. The patient will be evaluated for further management. Impression Primary Impression: Atrial fibrillation Additional Impression: CHF (congestive heart failure) Scribe Attestation The scribe's documentation has been prepared under my direction and personally reviewed by me in its entirety. I confirm that the note above accurately reflects all work, treatment, procedures, and medical decision making performed by me. Departure Information Dispostion Being Evaluated By Hospitalist Referrals Ye Bazan M.D. (PCP) Forms HOME CARE DOCUMENTATION FORM, IMPORTANT VISIT INFORMATION, WORK / SCHOOL INSTRUCTIONS Patient Instructions My [facility] Problem Qualifiers
[2017-09-28 09:13] LABS: BASO % 0.1 %; BASO ABS # 0.02 K/uL (0-0.2); EOS % 0.1 %; EOS ABS # 0.02 K/uL (0-0.5); HEMOGLOBIN 13.1 g/dL (14.0-18.0); IG# 0.32 K/uL (0.00-0.02); LYMPH % 11.3 %; LYMPH ABS # 1.74 K/uL (1.2-3.4); MEAN CELL VOLUME 93.8 fL (80-100); MEAN CORPUSCULAR HEMOGLOBIN 32.3 pg (25-34); MEAN CORPUSCULAR HGB CONC 34.5 g/dl (32-36); MEAN PLATELET VOLUME 8.9 fL (7.4-10.4); MONO % 10.8 %; MONO ABS # 1.67 K/uL (0.11-0.59); NEUT % 75.6 %; NEUT ABS # 11.63 K/uL (1.4-6.5); PLATELET COUNT 324 K/uL (130-400); RED CELL DISTRIBUTION WIDTH CV 13.2 % (11.5-14.5); RED CELL DISTRIBUTION WIDTH SD 45.1 fL (36.4-46.3)
--- NOTE | 2017-09-28 09:16 | DIAGNOSTIC IMAGING REPORT ---
CHEST ONE VIEW PORTABLE CLINICAL HISTORY: 82 years-old Male presenting with EVALUATE RESPIRATORY DISTRESS.DYSPNEA. TECHNIQUE: Portable upright AP view of the chest was obtained. COMPARISON: 09/26/2017. FINDINGS: Cardiomediastinal silhouette normal. Mildly low lung volumes. No focal opacity. Previously suggested right basilar opacity is no longer present. No large pleural effusion or pneumothorax. Degenerative changes of the thoracic spine. Upper abdomen normal. IMPRESSION: 1. No acute cardiopulmonary disease. Electronically signed by: Ye Coyle M.D. 09/28/2017 9:14 AM Dictated Date/Time: 09/28/2017 9:14 AM
[2017-09-28 09:21] LABS: POTASSIUM 4.6 mmol/L (3.5-5.1); SODIUM 137 mmol/L (136-145)
[2017-09-28 09:26] LABS: ALBUMIN 3.1 gm/dl (3.4-5.0); ALT/SGPT 47 U/L (12-78); AST/SGOT 24 U/L (15-37); BLOOD UREA NITROGEN 37 mg/dl (7-18); CALCIUM 8.7 mg/dl (8.5-10.1); CARBON DIOXIDE 24 mmol/L (21-32); CREATININE 1.69 mg/dl (0.60-1.40); GLUCOSE 174 mg/dl (70-99)
[2017-09-28 09:28] LABS: INR 0.9 (0.9-1.1); PTT PATIENT 22.6 SECONDS (21.0-31.0)
[2017-09-28 09:37] LABS: ALKALINE PHOSPHATASE 64 U/L (45-117); TOTAL PROTEIN 7.9 gm/dl (6.4-8.2)
[2017-09-28 10:36] VITALS: O2SAT 94; Ht 177.8 cm; Wt 95.0 kg
--- NOTE | 2017-09-28 11:05 | History and Physical ---
History & Physical Date & Time of Service: September 28, 2017 at 10:46 Chief Complaint: Difficulty Breathing Primary Care Physician: Ye Bazan M.D. History of Present Illness Source: patient, spouse 82yo male with HTN and T2DM who presents with an 11-day illness consisting of cough, chest congestion, sputum production (brown/yellow), ?1 day of fever, anorexia, and some shortness of breath with activity. Was seen initially at [facility], dx with URI, and sent home with albuterol inhaler and what sounds like tessalon pearles. He returned to the same urgent care 2 days later because of worsening symptoms. That time he was dx with acute bronchitis and sent home with z-pack and prednisone. This he was seen in the [facility] [place] office and dx with possible pneumonia. Levaquin and additional prednisone were prescribed at that time. No h/o tobacco use. H/o allergic rhinitis and ?asthma. Today upon ED presentation he was found to be in a. fib with HR<100. He has no palpitations. No sick contacts. No recent travel. Past Medical/Surgical History PMH: 1. HTN 2. T2DM 3. CKD stage 3 4. hyperlipidemia PSH: 1. prostatectomy 1996 for prostate cancer 2. b/l cataract extraction 3. femur fracture, right, s/p ORIF (repaired in [place]) Family History mother - age 54; hepatocellular cancer father - COPD; age 72 Social History Smoking Status: Never Smoker Alcohol Use: occasionally Marital Status: (no kids) Housing status: lives with family (lives in [place] with ) Occupational Status: retired (worked at [employer] ) Immunizations History of Influenza Vaccine: Yes History of Tetanus Vaccine?: Yes History of Pneumococcal: Yes History of Hepatitis B Vaccine: Yes Allergies Coded Allergies: Nystatin (Verified Allergy, Unknown, UNKNOWN, 09/28/17) Triamcinolone (Verified Allergy, Unknown, UNKNOWN, 09/28/17) Home Medications Scheduled Amlodipine (Norvasc), 5 MG PO QAM Aspirin (Aspirin Ec), 81 MG PO QAM Glimepiride (Glimepiride), 4 MG PO DAILY Hydrocodone/Homatropine (Hydromet), 5 ML PO Q4H Levofloxacin (Levaquin), 500 MG PO DAILY Lisinopril (Zestril), 20 MG PO QAM Metformin Hcl (Glucophage), 500 MG PO BID Metoprolol Succinate (Toprol Xl), 100 MG PO QAM Multiple Vitamin (Multiple Vitamin), 1 TABLET PO QAM Simvastatin (Zocor), 20 MG PO QPM Scheduled PRN Fluticasone Propionate (Nasal) (Flonase Allergy Relief), 1 SPRAY GLORIA DAILY PRN for SINUS CONGESTION Miscellaneous Medications Prednisone (Prednisone) Review of Systems Constitutional: + fever, + weight loss, + fatigue Eyes: No worsening of vision ENT: + nasal symptoms, + sore throat, No trouble swallowing Respiratory: + cough, + sputum, + wheezing, + shortness of breath, + dyspnea on exertion, No dyspnea at rest, No hemoptysis Cardiovascular: + edema (chronic - no change), No chest pain Abdomen: No pain, No nausea, No vomiting, No diarrhea, No GI bleeding Musculoskeletal: + muscle pain (aches for several days) Genitourinary - Male: No hematuria, No dysuria Neurologic: No numbness/tingling Psychiatric: No depression symptoms, No insomnia Endocrine: + fatigue Hematologic / Lymphatic: No abnormal bleeding/bruising Integumentary: No rash Physical Exam Vital Signs Date Time Temp Pulse Resp B/P (MAP) Pulse Ox O2 Delivery O2 Flow Rate FiO2 09/28/17 10:36 94 Room Air 09/28/17 09:49 92 20 136/82 94 Room Air 09/28/17 08:59 90 09/28/17 08:53 95 Room Air 09/28/17 08:53 95 Room Air 09/28/17 08:23 36.5 89 20 132/78 96 Room Air General Appearance: no apparent distress, + pertinent finding (COUGHING) Head: normocephalic, atraumatic Eyes: PERRL (LENS IMPLANTS B/L ) ENT: hearing grossly normal, TMs normal, + pharyngeal erythema Neck: supple, no adenopathy, thyroid normal, no JVD, no carotid bruits Respiratory/Chest: no respiratory distress, no accessory muscle use, + rales (b /l bases), + wheezing (extensive b/l) Cardiovascular: no gallop, no murmur, normal peripheral pulses, + irregularly irregular Abdomen/GI: normal bowel sounds, non tender, soft, no organomegaly Back: normal inspection Extremities/Musculoskelatal: + pedal edema (b/l ankles, worse on right; right calf is larger than right calf), + swelling Neurologic/Psych: no motor/sensory deficits, alert, normal mood/affect, normal reflexes, oriented x 3 Skin: + pertinent finding (numerous skin lesions on back, arms, etc ( photodamage)) Lymphatic: no adenopathy (no cervical lymphadenopathy ) Diagnostics Laboratory Results Results Past 24 Hours Test 09/28/17 08:50 Range/Units White Blood Count 15.40 4.8-10.8 K/uL Red Blood Count 4.05 4.7-6.1 M/uL Hemoglobin 13.1 14.0-18.0 g/dL Hematocrit 38.0 42-52 % Mean Corpuscular Volume 93.8 80-100 fL Mean Corpuscular Hemoglobin 32.3 25-34 pg Mean Corpuscular Hemoglobin Concent 34.5 32-36 g/dl Platelet Count 324 130-400 K/uL Mean Platelet Volume 8.9 7.4-10.4 fL Neutrophils (%) (Auto) 75.6 % Lymphocytes (%) (Auto) 11.3 % Monocytes (%) (Auto) 10.8 % Eosinophils (%) (Auto) 0.1 % Basophils (%) (Auto) 0.1 % Neutrophils # (Auto) 11.63 1.4-6.5 K/uL Lymphocytes # (Auto) 1.74 1.2-3.4 K/uL Monocytes # (Auto) 1.67 0.11-0.59 K/uL Eosinophils # (Auto) 0.02 0-0.5 K/uL Basophils # (Auto) 0.02 0-0.2 K/uL RDW Standard Deviation 45.1 36.4-46.3 fL RDW Coefficient of Variation 13.2 11.5-14.5 % Immature Granulocyte % (Auto) 2.1 % Immature Granulocyte # (Auto) 0.32 0.00-0.02 K/uL Prothrombin Time 9.6 9.0-12.0 SECONDS Prothromb Time International Ratio 0.9 0.9-1.1 Activated Partial Thromboplast Time 22.6 21.0-31.0 SECONDS Partial Thromboplastin Ratio 0.9 Sodium Level 137 136-145 mmol/L Potassium Level 4.6 3.5-5.1 mmol/L Chloride Level 103 98-107 mmol/L Carbon Dioxide Level 24 21-32 mmol/L Anion Gap 10.0 3-11 mmol/L Blood Urea Nitrogen 37 7-18 mg/dl Creatinine 1.69 0.60-1.40 mg/dl Est Creatinine Clear Calc Drug Dose 38.2 ml/min Estimated GFR () 42.3 Estimated GFR (Non- 36.5 BUN/Creatinine Ratio 21.7 10-20 Random Glucose 174 70-99 mg/dl Calcium Level 8.7 8.5-10.1 mg/dl Magnesium Level 2.5 1.8-2.4 mg/dl Total Bilirubin 0.6 0.2-1 mg/dl Aspartate Amino Transf (AST/SGOT) 24 15-37 U/L Alanine Aminotransferase (ALT/SGPT) 47 12-78 U/L Alkaline Phosphatase 64 45-117 U/L Troponin I < 0.015 0-0.045 ng/ml Pro-B-Type Natriuretic Peptide 7059 0-1800 pg/ml Total Protein 7.9 6.4-8.2 gm/dl Albumin 3.1 3.4-5.0 gm/dl Globulin 4.8 2.5-4.0 gm/dl Albumin/Globulin Ratio 0.7 0.9-2 Thyroid Stimulating Hormone (TSH) 0.656 0.300-4.500 uIu/ml Diagnostic Radiology cxr - FINDINGS: Cardiomediastinal silhouette normal. Mildly low lung volumes. No focal opacity. Previously suggested right basilar opacity is no longer present. No large pleural effusion or pneumothorax. Degenerative changes of the thoracic spine. Upper abdomen normal. IMPRESSION: 1. No acute cardiopulmonary disease. EKG EKG - my reading - a fib, RBBB, PVCs, no ST segment changes Impression Assessment and Plan 82yo male with h/o HTN, T2DM, and CKD stage 3 presenting with acute bronchitis of 10 days duration - unresponsive to outpatient management with multiple antibiotics, steroids, and inhaler. He was also found to be in a. fib but fortunately he is rate-controlled and asymptomatic from such. His symptoms all worsened in the last few days. 1. acute bronchitis - there is no radiographic evidence of pneumonia today. Will check PCR flu. Place on solumedrol 40mg IV q8h. Doxycycline 100mg BID x 7 days. If flu test is +, however, would discontinue any antibiotics as there is no evidence of infiltrate on chest imaging. xopenex/atrovent nebs q6h. Mucinex 1200mg BID. Incentive spirometry. I don't hear or see evidence of complicating acute CHF. 2. a. fib - new-onset. CHADs score is at least a 3. Anticoagulation is indicated/suggested. Continue beta haider for rate control. Echo to check LV function and valve function. Place on telemetry. Troponin is negative and there is no evidence of ACS. TSH and electrolytes are wnl. Consider cardiology consult. 3. CKD stage 3 - creatinine is just slightly higher above baseline. NS x 500cc then saline lock. 4. HTN - controlled; continue home meds. 5. T2DM - FSBS's will rise with IV steroids. Will place on lantus 10 units BID and novolog (goal range 100-150, correction factor 25, carb ratio 1:8). BSGs ac/hs. Hold oral agents. 6. hyperlipidemia - statin agent. 7. DVT proph - will likely initiate eliquis for a. fib but will check pricing first. In meantime heparin infusion, standard, w/o bolus. May need PT, OT while here. patient requests level 1 full code updated at bedside Advanced Directives Existing Living Will: Yes Existing Power of Pegger: Yes Resuscitation Status VTE Prophylaxis Will order VTE Prophylaxis: Yes Note total visit time 70 min Additional Copies To Ye Bazan M.D.
[2017-09-28] MEDS ORDERED: GUAIFENESIN 600 MG TABCR PO ONE (11:18)
[2017-09-28] MEDS ORDERED: DOXYCYCLINE HYCLATE 100 MG CAP PO STA (11:18)
[2017-09-28] MEDS ORDERED: ONDANSETRON INJ 2 MG/ML 2 ML VIAL IV PRN (11:30)
[2017-09-28] MEDS ORDERED: MAGNESIUM HYDROXIDE SUSP 30 ML UDC PO PRN (11:30)
[2017-09-28] MEDS ORDERED: NITROGLYCERIN 0.4 MG SL PER TAB CHARGE SL PRN (11:30)
[2017-09-28] MEDS ORDERED: POLYETHYLENE (MIRALAX) 17 GM PACK PO PRN (11:30)
[2017-09-28] MEDS ORDERED: ACETAMINOPHEN 325 MG TAB PO PRN (11:30)
[2017-09-28] MEDS ORDERED: INSULIN GLARGINE SOLOSTAR 100 UNITS/ML 3 ML PEN SC ONE (11:30)
[2017-09-28] MEDS ORDERED: ALUMINUM/MAGNESIUM/SIMETH (MAALOX MAX) 30 ML UDC PO PRN (11:30)
[2017-09-28] MEDS ORDERED: LEVALBUTEROL/IPRATROPIUM NEB INH SCH (12:00)
[2017-09-28] MEDS: LEVALBUTEROL 1.25MG/0.5ML NEB INH SCH ×4 (12:00→19:36)
[2017-09-28] MEDS: IPRATROPIUM BROMIDE NEB SOLN 0.02% 2.5 ML VIAL INH SCH ×4 (12:00→19:36)
[2017-09-28 13:34] VITALS: BP 158/91; PULSE 75; TEMP 36.6; O2SAT 93
[2017-09-28] MEDS ORDERED: GLUCOSE 10 TABS/TUBE PO PRN (14:15)
[2017-09-28] MEDS ORDERED: CARBOHYDRATES FOR HYPOGLYCEMIA PO PRN (14:15)
[2017-09-28] MEDS ORDERED: GLUCAGON FOR INJ 1 MG VIAL IM PRN (14:15)
[2017-09-28] MEDS ORDERED: DEXTROSE 50% 50 ML SYR IV PRN (14:15)
[2017-09-28] MEDS ORDERED: SODIUM CHLORIDE 0.9% 1000ML 1,000 ML IV SCH (14:15)
[2017-09-28] MEDS ORDERED: GLUCOSE 40% GEL 15 GM TUBE PO PRN (14:15)
[2017-09-28 14:20] VITALS: PULSE 68; O2SAT 98
[2017-09-28] MEDS: METHYLPREDNISOLONE IV 40 MG in SYRINGE 0 ML IV SCH ×2 (14:33→20:53)
[2017-09-28 14:38] LABS: INFLUENZA A PCR Neg for Influ A (NEG)
[2017-09-28 14:39] LABS: INFLUENZA B PCR POS for Influ B (NEG)
[2017-09-28] MEDS ORDERED: OSELTAMIVIR PHOSPHATE 75 MG CAP PO STA (14:50)
[2017-09-28 14:53] VITALS: BP 151/94; PULSE 91; TEMP 36.7; O2SAT 95
[2017-09-28] MEDS: OSELTAMIVIR PHOSPHATE SUSP 30 MG/5 ML UDP PO SCH ×2 (15:23→20:56)
[2017-09-28] MEDS: BENZONATATE 100MG CAP PO SCH ×2 (15:55→20:48)
[2017-09-28] MEDS: INSULIN ASPART 100 UNITS/ML 3 ML PEN SC SCH ×2 (17:08→20:52)
[2017-09-28] MEDS ORDERED: GUAIFENESIN/CODEINE 100MG/10MG 5ML UDC PO PRN (17:45)
[2017-09-28 19:30] VITALS: BP 159/80; PULSE 103; TEMP 36.5; O2SAT 93
[2017-09-28 19:36] VITALS: PULSE 90; O2SAT 94
[2017-09-28] MEDS: GUAIFENESIN 600 MG TABCR PO SCH (20:48)
[2017-09-28] MEDS: SIMVASTATIN 20 MG TAB PO SCH (20:48)
[2017-09-28] MEDS: INSULIN GLARGINE SOLOSTAR 100 UNITS/ML 3 ML PEN SC SCH (20:53)
[2017-09-28] MEDS ORDERED: DOXYCYCLINE HYCLATE 100 MG CAP PO SCH (21:00)
[2017-09-28] MEDS ORDERED: OSELTAMIVIR PHOSPHATE 75 MG CAP PO SCH (21:00)
[2017-09-28 21:16] LABS: BASO % 0.1 %; BASO ABS # 0.02 K/uL (0-0.2); HEMATOCRIT 39.8 % (42-52); HEMOGLOBIN 13.4 g/dL (14.0-18.0); IG# 0.44 K/uL (0.00-0.02); LYMPH % 6.4 %; LYMPH ABS # 0.91 K/uL (1.2-3.4); MEAN CELL VOLUME 94.3 fL (80-100); MEAN CORPUSCULAR HEMOGLOBIN 31.8 pg (25-34); MEAN PLATELET VOLUME 8.8 fL (7.4-10.4); MONO ABS # 0.71 K/uL (0.11-0.59); NEUT % 85.4 %; NEUT ABS # 12.21 K/uL (1.4-6.5); PLATELET COUNT 304 K/uL (130-400); RED CELL DISTRIBUTION WIDTH CV 13.3 % (11.5-14.5); RED CELL DISTRIBUTION WIDTH SD 46.1 fL (36.4-46.3); WHITE BLOOD COUNT 14.29 K/uL (4.8-10.8)
[2017-09-28 21:32] LABS: PTT PATIENT 24.9 SECONDS (21.0-31.0)
[2017-09-28 21:39] LABS: MEAN CORPUSCULAR HGB CONC 33.7 g/dl (32-36)
[2017-09-28] MEDS: HEPARIN 25,000 UNIT/500ML D5W 500 ML IV SCH (23:17)
[2017-09-29] VITALS (11 sets, daily range): BP systolic 128–171; BP diastolic 70–97; PULSE 55–116; TEMP 36.3–36.8; O2SAT 93–98
[2017-09-29] MEDS: LEVALBUTEROL 1.25MG/0.5ML NEB INH SCH ×3 (01:50→19:55)
[2017-09-29] MEDS: IPRATROPIUM BROMIDE NEB SOLN 0.02% 2.5 ML VIAL INH SCH ×3 (01:50→19:53)
[2017-09-29 05:06] LABS: HEMATOCRIT 37.4 % (42-52); HEMOGLOBIN 12.5 g/dL (14.0-18.0); MEAN CELL VOLUME 94.4 fL (80-100); MEAN CORPUSCULAR HEMOGLOBIN 31.6 pg (25-34); MEAN CORPUSCULAR HGB CONC 33.4 g/dl (32-36); MEAN PLATELET VOLUME 8.8 fL (7.4-10.4); PLATELET COUNT 294 K/uL (130-400); RED CELL DISTRIBUTION WIDTH CV 13.2 % (11.5-14.5); WHITE BLOOD COUNT 11.88 K/uL (4.8-10.8)
[2017-09-29 05:37] LABS: CALCIUM 9.2 mg/dl (8.5-10.1); CREATININE 1.66 mg/dl (0.60-1.40); POTASSIUM 5.9 mmol/L (3.5-5.1)
[2017-09-29] MEDS: METHYLPREDNISOLONE IV 40 MG in SYRINGE 0 ML IV SCH ×3 (06:06→21:05)
[2017-09-29 06:11] LABS: PTT PATIENT 48.4 SECONDS (21.0-31.0)
[2017-09-29] MEDS: INSULIN GLARGINE SOLOSTAR 100 UNITS/ML 3 ML PEN SC SCH ×3 (08:22→21:04)
[2017-09-29] MEDS: INSULIN ASPART 100 UNITS/ML 3 ML PEN SC SCH ×4 (08:22→21:03)
[2017-09-29] MEDS: GUAIFENESIN 600 MG TABCR PO SCH ×2 (08:24→20:52)
[2017-09-29] MEDS: BENZONATATE 100MG CAP PO SCH ×3 (08:24→20:52)
[2017-09-29] MEDS: LISINOPRIL 20 MG TAB PO SCH (08:25)
[2017-09-29] MEDS: MULTIVITAMIN TAB PO SCH (08:25)
[2017-09-29] MEDS: METOPROLOL SUCC 50MG EXT REL TAB PO SCH (08:26)
[2017-09-29] MEDS: AMLODIPINE BESYLATE 5 MG TAB PO SCH (08:27)
[2017-09-29] MEDS: ASPIRIN 81 MG ECTAB PO SCH (08:27)
[2017-09-29] MEDS: OSELTAMIVIR PHOSPHATE SUSP 30 MG/5 ML UDP PO SCH ×2 (08:30→20:59)
--- NOTE | 2017-09-29 08:31 | Progress Note ---
Subjective Date of Service: September 29, 2017. Problem List Medical Problems: (1) CHF (congestive heart failure) Status: Acute Objective Vital Signs Date Time Temp Pulse Resp B/P (MAP) Pulse Ox O2 Delivery O2 Flow Rate FiO2 09/29/17 07:21 36.6 74 18 163/97 (119) 95 Room Air 09/29/17 07:16 83 16 96 Room Air 09/29/17 04:37 36.3 79 18 171/90 (117) 98 Room Air 09/29/17 04:00 Room Air 09/29/17 00:17 36.7 91 20 161/85 (110) 93 Room Air 09/29/17 00:02 Room Air 09/28/17 20:00 Room Air 09/28/17 19:36 90 16 94 Room Air 09/28/17 19:30 36.5 103 20 159/80 (106) 93 Room Air 09/28/17 16:00 Room Air 09/28/17 14:53 36.7 91 18 151/94 (113) 95 Room Air 09/28/17 14:20 68 16 98 Room Air 09/28/17 13:34 36.6 75 18 158/91 (113) 93 Room Air 09/28/17 13:10 112 18 119/88 94 Room Air 09/28/17 11:36 89 16 155/75 93 Room Air 09/28/17 10:36 94 Room Air 09/28/17 09:49 92 20 136/82 94 Room Air 09/28/17 08:59 90 09/28/17 08:53 95 Room Air 09/28/17 08:53 95 Room Air Laboratory Results Last 24 Hours Test 09/28/17 08:50 09/28/17 13:45 09/28/17 16:34 09/28/17 20:26 White Blood Count 15.40 K/uL Red Blood Count 4.05 M/uL Hemoglobin 13.1 g/dL Hematocrit 38.0 % Mean Corpuscular Volume 93.8 fL Mean Corpuscular Hemoglobin 32.3 pg Mean Corpuscular Hemoglobin Concent 34.5 g/dl Platelet Count 324 K/uL Mean Platelet Volume 8.9 fL Neutrophils (%) (Auto) 75.6 % Lymphocytes (%) (Auto) 11.3 % Monocytes (%) (Auto) 10.8 % Eosinophils (%) (Auto) 0.1 % Basophils (%) (Auto) 0.1 % Neutrophils # (Auto) 11.63 K/uL Lymphocytes # (Auto) 1.74 K/uL Monocytes # (Auto) 1.67 K/uL Eosinophils # (Auto) 0.02 K/uL Basophils # (Auto) 0.02 K/uL RDW Standard Deviation 45.1 fL RDW Coefficient of Variation 13.2 % Immature Granulocyte % (Auto) 2.1 % Immature Granulocyte # (Auto) 0.32 K/uL Prothrombin Time 9.6 SECONDS Prothromb Time International Ratio 0.9 Activated Partial Thromboplast Time 22.6 SECONDS Partial Thromboplastin Ratio 0.9 Sodium Level 137 mmol/L Potassium Level 4.6 mmol/L Chloride Level 103 mmol/L Carbon Dioxide Level 24 mmol/L Anion Gap 10.0 mmol/L Blood Urea Nitrogen 37 mg/dl Creatinine 1.69 mg/dl Est Creatinine Clear Calc Drug Dose 38.2 ml/min Estimated GFR () 42.3 Estimated GFR (Non- 36.5 BUN/Creatinine Ratio 21.7 Random Glucose 174 mg/dl Calcium Level 8.7 mg/dl Magnesium Level 2.5 mg/dl Total Bilirubin 0.6 mg/dl Aspartate Amino Transf (AST/SGOT) 24 U/L Alanine Aminotransferase (ALT/SGPT) 47 U/L Alkaline Phosphatase 64 U/L Troponin I < 0.015 ng/ml Pro-B-Type Natriuretic Peptide 7059 pg/ml Total Protein 7.9 gm/dl Albumin 3.1 gm/dl Globulin 4.8 gm/dl Albumin/Globulin Ratio 0.7 Thyroid Stimulating Hormone (TSH) 0.656 uIu/ml Influenza Type A (RT-PCR) Neg for Influ A Influenza Type B (RT-PCR) POS for Influ B Bedside Glucose 247 mg/dl 196 mg/dl Test 09/28/17 21:05 09/29/17 04:50 09/29/17 07:41 White Blood Count 14.29 K/uL 11.88 K/uL Red Blood Count 4.22 M/uL 3.96 M/uL Hemoglobin 13.4 g/dL 12.5 g/dL Hematocrit 39.8 % 37.4 % Mean Corpuscular Volume 94.3 fL 94.4 fL Mean Corpuscular Hemoglobin 31.8 pg 31.6 pg Mean Corpuscular Hemoglobin Concent 33.7 g/dl 33.4 g/dl Platelet Count 304 K/uL 294 K/uL Mean Platelet Volume 8.8 fL 8.8 fL Neutrophils (%) (Auto) 85.4 % Lymphocytes (%) (Auto) 6.4 % Monocytes (%) (Auto) 5.0 % Eosinophils (%) (Auto) 0.0 % Basophils (%) (Auto) 0.1 % Neutrophils # (Auto) 12.21 K/uL Lymphocytes # (Auto) 0.91 K/uL Monocytes # (Auto) 0.71 K/uL Eosinophils # (Auto) 0.00 K/uL Basophils # (Auto) 0.02 K/uL RDW Standard Deviation 46.1 fL 46.0 fL RDW Coefficient of Variation 13.3 % 13.2 % Immature Granulocyte % (Auto) 3.1 % Immature Granulocyte # (Auto) 0.44 K/uL Prothrombin Time 10.0 SECONDS Prothromb Time International Ratio 1.0 Activated Partial Thromboplast Time 24.9 SECONDS 48.4 SECONDS Partial Thromboplastin Ratio 1.0 1.9 Sodium Level 133 mmol/L Potassium Level 5.9 mmol/L Chloride Level 103 mmol/L Carbon Dioxide Level 26 mmol/L Anion Gap 4.0 mmol/L Blood Urea Nitrogen 34 mg/dl Creatinine 1.66 mg/dl Est Creatinine Clear Calc Drug Dose 38.9 ml/min Estimated GFR () 43.2 Estimated GFR (Non- 37.3 BUN/Creatinine Ratio 20.6 Random Glucose 237 mg/dl Calcium Level 9.2 mg/dl Bedside Glucose 200 mg/dl Assessment and Plan 82yo male with h/o HTN, T2DM, and CKD stage 3 presenting with acute bronchitis of 10 days duration - unresponsive to outpatient management with multiple antibiotics, steroids, and inhaler. He was also found to be in a. fib but fortunately he is rate-controlled and asymptomatic from such. His symptoms all worsened in the last few days. acute bronchitis -solumedrol 40mg IV q8h. xopenex/atrovent nebs q6h. Mucinex 1200mg BID. Doxycycline 100mg BID x 7 days. a. fib - new-onset. CHADs score is at least a 3. Anticoagulation is indicated /suggested. Continue beta haider for rate control. Echo to check LV function and valve function. Troponin is negative and there is no evidence of ACS. CKD stage 3 -avoid nephrotoxins HTN - controlled; T2DM - lantus 10 units BID and novolog (goal range 100-150, correction factor 25, carb ratio 1:8). BSGs ac/hs. hyperlipidemia - statin agent. DVT proph - will likely initiate eliquis for a. fib but will check pricing first. May need PT, OT while here. patient requests level 1 full code
[2017-09-29] MEDS ORDERED: DILTIAZEM HCL 30 MG TAB PO SCH (10:00)
--- NOTE | 2017-09-29 13:35 | ECHOCARDIOGRAM REPORT ---
*NOTICE TO RECEIVING LIBERTARIAN AGENCY This information is strictly Confidential and protected under [place] law. [place] law prohibits you from making any further disclosure of this information unless further disclosure is expressly permitted by the written consent of the person to whom it pertains or is authorized by law. A general authorization for the release of medical or other information is not sufficient for this purpose. Hospital accepts no responsibility if the information is made available to any other person, INCLUDING THE PATIENT. Interpretation Summary * Name: URBANO EDWARDS Study Date: 09/28/2017 02:43 PM BP: 151/94 mmHg * Patient Location: [facility] HR: 124 * : 1935 (M/d/yyyy) Gender: Male Height: 70 in * Age: 82 yrs Ethnicity: CA Weight: 216 lb * Ordering Physician: Jacob Bhatt * Referring Physician: Self, Referred * Performed By: Azeb Rizzo RCS * * Reason For Study: A-FIB * BSA: 2.2 m2 * -- Conclusions -- * Left ventricular systolic function is normal. * No regional wall motion abnormalities noted. * Ejection Fraction = 65-70%. * There is mild concentric left ventricular hypertrophy. * There is mild to moderate mitral regurgitation. * There is mild tricuspid regurgitation. Procedure Details * A complete two-dimensional transthoracic echocardiogram was performed (2D, M-mode, Doppler and color flow Doppler). Left Ventricle * The left ventricle is normal in size. * There is mild concentric left ventricular hypertrophy. * Left ventricular systolic function is normal. * Ejection Fraction = 65-70%. * No regional wall motion abnormalities noted. Right Ventricle * The right ventricle is grossly normal size. * The right ventricular systolic function is normal as assessed by tricuspid annular plane systolic excursion (TAPSE) (normal >1.5 cm). Atria * The left atrium is mildly dilated. * Borderline right atrial enlargement. * No ASD detected; PFO is not assessed. Mitral Valve * The mitral valve is grossly normal. * There is no mitral valve stenosis. * There is mild to moderate mitral regurgitation. Tricuspid Valve * The tricuspid valve is not well visualized, but is grossly normal. * There is no tricuspid stenosis. * There is mild tricuspid regurgitation. Aortic Valve * The aortic valve is trileaflet. * The aortic valve opens well. * No hemodynamically significant valvular aortic stenosis. * No aortic regurgitation is present. Pulmonic Valve * The pulmonary valve is not well seen, but the Doppler examination is normal without significant regurgitation or stenosis. Great Vessels * The aortic root is normal size. * The pulmonary is not well visualized. Pericardium/Pleural * There is no pericardial effusion. Great Vessels * Inferior vena occasion not well visualized. MMode 2D Measurements and Calculations IVSd 1.2 cm IVSs 1.6 cm LVIDd 3.9 cm LVIDs 2.8 cm LVPWd 1.1 cm LVPWs 1.6 cm IVS/LVPW 1.1 FS 29.3 % EDV(Teich) 65.7 ml ESV(Teich) 28.3 ml EF(Teich) 56.9 % EDV(cubed) 59.1 ml ESV(cubed) 20.9 ml EF(cubed) 64.7 % % IVS thick 31.1 % % LVPW thick 44.1 % LV mass(C)d 149.9 grams LV mass(C)dI 69.5 grams/m\S\2 LV mass(C)s 155.7 grams LV mass(C)sI 72.2 grams/m\S\2 SV(Teich) 37.4 ml SI(Teich) 17.3 ml/m\S\2 SV(cubed) 38.3 ml SI(cubed) 17.7 ml/m\S\2 Ao root diam 2.8 cm Ao root area 6.1 cm\S\2 LA dimension 4.3 cm LA/Ao 1.6 LVOT diam 2.0 cm LVOT area 3.0 cm\S\2 LVAd ap4 27.1 cm\S\2 LVLd ap4 8.3 cm EDV(MOD-sp4) 72.7 ml EDV(sp4-el) 75.6 ml LVAs ap4 18.8 cm\S\2 LVLs ap4 7.0 cm ESV(MOD-sp4) 41.5 ml ESV(sp4-el) 43.3 ml EF(MOD-sp4) 43.0 % EF(sp4-el) 42.8 % LVAd ap2 25.4 cm\S\2 LVLd ap2 7.8 cm EDV(MOD-sp2) 66.5 ml EDV(sp2-el) 70.2 ml LVAs ap2 16.5 cm\S\2 LVLs ap2 6.1 cm ESV(MOD-sp2) 38.6 ml ESV(sp2-el) 38.1 ml EF(MOD-sp2) 42.0 % EF(sp2-el) 45.8 % LVLd %diff -6.17 % EDV(MOD-bp) 71.4 ml LVLs %diff -14.15 % ESV(MOD-bp) 42.7 ml EF(MOD-bp) 40.2 % SV(MOD-sp4) 31.3 ml SI(MOD-sp4) 14.5 ml/m\S\2 SV(MOD-sp2) 27.9 ml SI(MOD-sp2) 13.0 ml/m\S\2 SV(MOD-bp) 28.7 ml SI(MOD-bp) 13.3 ml/m\S\2 SV(sp4-el) 32.3 ml SI(sp4-el) 15.0 ml/m\S\2 SV(sp2-el) 32.1 ml SI(sp2-el) 14.9 ml/m\S\2 Doppler Measurements and Calculations MV E max farrah 121.6 cm/sec MV P1/2t max farrah 117.3 cm/sec MV P1/2t 66.6 msec MVA(P1/2t) 3.3 cm\S\2 MV dec slope 516.4 cm/sec\S\2 MV dec time 0.17 sec Ao V2 max 111.7 cm/sec Ao max PG 5.0 mmHg Ao max PG (full) 1.2 mmHg MILTON(V,A) 2.6 cm\S\2 MILTON(V,D) 2.6 cm\S\2 LV V1 max PG 3.8 mmHg LV V1 max 97.8 cm/sec MR max farrah 520.6 cm/sec MR max PG 110.1 mmHg TR max farrah 257.1 cm/sec
[2017-09-29] MEDS: HEPARIN 25,000 UNIT/500ML D5W 500 ML IV SCH (14:59)
[2017-09-29] MEDS ORDERED: RIVAROXABAN 20 MG TAB PO ONE (16:00)
[2017-09-29] MEDS: DILTIAZEM HCL 30 MG TAB PO SCH ×2 (16:36→21:08)
[2017-09-29] MEDS: SIMVASTATIN 20 MG TAB PO SCH (20:53)
[2017-09-30] VITALS (10 sets, daily range): BP systolic 135–166; BP diastolic 72–83; PULSE 76–100; TEMP 36.4–36.6; O2SAT 95–97
--- NOTE | 2017-09-30 00:31 | Progress Note ---
Subjective Date of Service: September 29, 2017. Subjective Pt evaluation today including: conversation w/ patient, conversation w/ family (, by phone), physical exam, chart review, lab review, review of studies ( echo), review of inpatient medication list Pain: none PO Intake: normal Voiding: no voiding problems tele with a. fib rates >100 even at rest he overall feels better w/ less cough, congestion, wheezing, and dyspnea no fevers or chills we discussed anticoagulation today Problem List Medical Problems: (1) CHF (congestive heart failure) Status: Acute Review of Systems Constitutional: No fever Respiratory: No shortness of breath, No dyspnea on exertion Cardiac: No chest pain, No orthopnea, No PND, No edema Abdomen: No pain Musculoskeletal: + muscle pain (myalgias) Objective Vital Signs Date Time Temp Pulse Resp B/P (MAP) Pulse Ox O2 Delivery O2 Flow Rate FiO2 09/29/17 23:28 36.3 91 18 132/76 (94) 98 Room Air 09/29/17 21:07 88 138/70 (92) 09/29/17 20:00 Room Air 09/29/17 19:55 55 16 96 Room Air 09/29/17 19:00 36.4 61 18 128/75 (92) 95 Room Air 09/29/17 16:00 Room Air 09/29/17 15:31 36.6 109 18 160/73 (102) 95 Room Air 09/29/17 14:03 116 16 97 Room Air 09/29/17 12:00 Room Air 09/29/17 11:51 36.8 85 18 162/96 (118) 95 Room Air 09/29/17 08:00 Room Air 09/29/17 07:21 36.6 74 18 163/97 (119) 95 Room Air 09/29/17 07:16 83 16 96 Room Air 09/29/17 04:37 36.3 79 18 171/90 (117) 98 Room Air 09/29/17 04:00 Room Air Physical Exam General Appearance: no apparent distress, + pertinent finding (looks better) ENT: pharynx normal Neck: no JVD Respiratory/Chest: no respiratory distress, no accessory muscle use, + crackles (focal, right base), + wheezing (b/l, but improved from yesterday) Cardiovascular: no murmur, + tachycardia, + irregularly irregular Abdomen: normal bowel sounds, non tender, soft, no organomegaly Extremities: + pedal edema (<1+ b/l ) Neurologic/Psychiatric: alert, oriented x 3 Laboratory Results Last 24 Hours Test 09/29/17 04:50 09/29/17 07:41 09/29/17 08:50 09/29/17 11:44 White Blood Count 11.88 K/uL Red Blood Count 3.96 M/uL Hemoglobin 12.5 g/dL Hematocrit 37.4 % Mean Corpuscular Volume 94.4 fL Mean Corpuscular Hemoglobin 31.6 pg Mean Corpuscular Hemoglobin Concent 33.4 g/dl RDW Standard Deviation 46.0 fL RDW Coefficient of Variation 13.2 % Platelet Count 294 K/uL Mean Platelet Volume 8.8 fL Activated Partial Thromboplast Time 48.4 SECONDS Partial Thromboplastin Ratio 1.9 Sodium Level 133 mmol/L Potassium Level 5.9 mmol/L 4.5 mmol/L Chloride Level 103 mmol/L Carbon Dioxide Level 26 mmol/L Anion Gap 4.0 mmol/L Blood Urea Nitrogen 34 mg/dl Creatinine 1.66 mg/dl Est Creatinine Clear Calc Drug Dose 38.9 ml/min Estimated GFR () 43.2 Estimated GFR (Non- 37.3 BUN/Creatinine Ratio 20.6 Random Glucose 237 mg/dl Calcium Level 9.2 mg/dl Bedside Glucose 200 mg/dl 235 mg/dl Test 09/29/17 16:36 09/29/17 20:14 Bedside Glucose 141 mg/dl 283 mg/dl Assessment and Plan 82yo male with h/o HTN, T2DM, and CKD stage 3 who presented with acute bronchitis of 10 days duration - unresponsive to outpatient management with multiple antibiotics, steroids, and inhaler. A few days prior to admission he became worse, had myalgias, etc. He was also found to be in a. fib at time of ER presentation. 1. acute bronchitis 2nd to flu B infection - improving. d/c doxycycline as illness is likely all viral in origin/due to flu B. Recheck cxr in am, however, to r/o any complicating pneumonia. lower steroids to q12h dosing. Cont nebs, mucinex, incentive spirometry. 2. a. fib - new-onset. CHADs score is a 3. Anticoagulation is indicated/ suggested. We discussed options and will go with xarelto. d/c heparin infusion. Continue beta haider for rate control and add cardizem 30mg q6h; titrate as necessary and ultimately convert to long-acting. Echo with normal LV function and valve function. TSH and electrolytes were wnl. Consider cardiology consult. 3. CKD stage 3 - creatinine stable. 4. HTN - controlled; continue home meds. 5. T2DM - uncontrolled due to steroids; adjust lantus and adjust novolog correction/carb ratio. 6. hyperlipidemia - statin agent. 7. DVT proph - xarelto. PT, OT evals repeat cxr in am updated by phone today; she was encouraged to call her PCP about tamiflu prophy Continued [facility] stay due to: multiple IV medications needed Discharge planning: home
[2017-09-30] MEDS: IPRATROPIUM BROMIDE NEB SOLN 0.02% 2.5 ML VIAL INH SCH ×4 (02:05→19:03)
[2017-09-30] MEDS: LEVALBUTEROL 1.25MG/0.5ML NEB INH SCH ×4 (02:05→19:03)
[2017-09-30] MEDS: DILTIAZEM HCL 30 MG TAB PO SCH ×4 (04:12→20:40)
[2017-09-30 06:54] LABS: CALCIUM 8.9 mg/dl (8.5-10.1); CREATININE 1.73 mg/dl (0.60-1.40); POTASSIUM 4.4 mmol/L (3.5-5.1)
--- NOTE | 2017-09-30 07:59 | DIAGNOSTIC IMAGING REPORT ---
CHEST 2 VIEWS ROUTINE CLINICAL HISTORY: Influenza infection. COMPARISON STUDY: 09/28/2017 FINDINGS: The cardiac and mediastinal contours are normal. There is no evidence of focal pulmonary consolidation. There is no evidence of failure. No pleural effusions are visualized.[ There is slight interstitial thickening similar to the preceding study. IMPRESSION: Stable mild interstitial thickening. No evidence of focal pulmonary consolidation. Electronically signed by: Levi Almanza M.D. 09/30/2017 7:58 AM Dictated Date/Time: 09/30/2017 7:57 AM
[2017-09-30] MEDS: GUAIFENESIN 600 MG TABCR PO SCH ×2 (08:22→20:40)
[2017-09-30] MEDS: ASPIRIN 81 MG ECTAB PO SCH (08:23)
[2017-09-30] MEDS: METOPROLOL SUCC 50MG EXT REL TAB PO SCH (08:23)
[2017-09-30] MEDS: MULTIVITAMIN TAB PO SCH (08:23)
[2017-09-30] MEDS: AMLODIPINE BESYLATE 5 MG TAB PO SCH (08:24)
[2017-09-30] MEDS: LISINOPRIL 20 MG TAB PO SCH (08:24)
[2017-09-30] MEDS: BENZONATATE 100MG CAP PO SCH ×3 (08:25→20:40)
[2017-09-30] MEDS: INSULIN ASPART 100 UNITS/ML 3 ML PEN SC SCH ×4 (08:36→20:43)
[2017-09-30] MEDS: OSELTAMIVIR PHOSPHATE SUSP 30 MG/5 ML UDP PO SCH ×2 (08:37→20:51)
[2017-09-30] MEDS: INSULIN GLARGINE SOLOSTAR 100 UNITS/ML 3 ML PEN SC SCH ×2 (08:37→20:44)
[2017-09-30] MEDS ORDERED: RIVAROXABAN 20 MG TAB PO SCH (09:00)
[2017-09-30] MEDS: METHYLPREDNISOLONE IV 40 MG in SYRINGE 0 ML IV SCH ×2 (10:03→20:40)
--- NOTE | 2017-09-30 20:02 | Hospitalist Progress Note ---
Hospitalist Progress Note Date of Service September 30, 2017. Subjective Pt evaluation today including: conversation w/ patient Patient feeling much better. Still some cough. He ambulated more in the halls today and felt a little short of breath with that. He is not on oxygen. His chest x-ray was personally reviewed by me this morning and appears without infiltrate. He is eating and drinking, no abdominal pain, no diarrhea or constipation, he is making good urine. Telemetry with atrial fibrillation with rates in the 80s-90s, IVCD. All Other Systems: Reviewed and Negative Objective Vital Signs Date Time Temp Pulse Resp B/P (MAP) Pulse Ox O2 Delivery O2 Flow Rate FiO2 09/30/17 19:05 90 16 95 Room Air 09/30/17 16:00 Room Air 09/30/17 15:09 36.6 83 20 138/82 (100) 97 Room Air 09/30/17 14:30 87 17 96 Room Air 09/30/17 12:00 Room Air 09/30/17 11:47 36.6 85 18 150/81 (104) 95 Room Air 09/30/17 08:00 Room Air 09/30/17 07:10 85 15 95 Room Air 09/30/17 07:06 36.4 78 18 135/78 (97) 95 Room Air 09/30/17 04:07 Room Air 09/30/17 03:33 36.4 97 20 166/73 (104) 96 Room Air 09/30/17 02:05 87 16 96 Room Air 09/30/17 00:20 Room Air 09/29/17 23:28 36.3 91 18 132/76 (94) 98 Room Air 09/29/17 21:07 88 138/70 (92) Physical Exam General Appearance: WD/WN, no apparent distress Eyes: normal inspection, sclerae normal ENT: hearing grossly normal Neck: trachea midline Respiratory/Chest: no respiratory distress, no accessory muscle use, + wheezing (Some faint expiratory wheezes scattered) Cardiovascular: + irregularly irregular (With normal rate) Abdomen: normal bowel sounds, non tender, soft Extremities: no calf tenderness, + swelling (Trace pitting edema right greater than left in the legs which he says is chronic for him) Neurologic/Psychiatric: alert, normal mood/affect, oriented x 3 Skin: normal color, warm/dry, no rash Laboratory Results Last 24 Hours Test 09/29/17 20:14 09/30/17 05:53 09/30/17 07:33 09/30/17 11:31 Bedside Glucose 283 mg/dl 213 mg/dl 249 mg/dl Sodium Level 133 mmol/L Potassium Level 4.4 mmol/L Chloride Level 101 mmol/L Carbon Dioxide Level 22 mmol/L Anion Gap 10.0 mmol/L Blood Urea Nitrogen 42 mg/dl Creatinine 1.73 mg/dl Est Creatinine Clear Calc Drug Dose 37.3 ml/min Estimated GFR () 41.1 Estimated GFR (Non- 35.5 BUN/Creatinine Ratio 24.1 Random Glucose 226 mg/dl Calcium Level 8.9 mg/dl Test 09/30/17 16:10 Bedside Glucose 196 mg/dl Assessment and Plan 82yo male with h/o HTN, T2DM, and CKD stage 3 who presented with acute bronchitis of 10 days duration - unresponsive to outpatient management with multiple antibiotics, steroids, and inhaler. A few days prior to admission he became worse, had myalgias, etc. He was also found to be in a. fib at time of ER presentation. 1. acute bronchitis 2nd to flu B infection-now significantly improved. Repeat chest x-ray remains without infiltrate. Initially was on doxycycline but since discontinued as illness is likely all viral in origin/due to flu B. -Continue IV Solu-Medrol and switch to p.o. prednisone taper for discharge tomorrow Cont nebs, mucinex, incentive spirometry. -Finish out 5 day course of Tamiflu 2. Atrial fibrillation new-onset. CHADs score is a 3. Anticoagulation is indicated and patient is agreeable to starting Xarelto. Heart rate is much better controlled after starting diltiazem. Heparin infusion discontinued and was started on Xarelto, however he does require the lower dose due to creatinine clearance less than 50. Echo with normal LV function and only with mild-moderate mitral valve regurgitation TSH and electrolytes were wnl. -Change Xarelto to 15 mg once daily with dinner -Discontinue amlodipine as is now on diltiazem -Continue metoprolol for rate control and convert to long-acting diltiazem CD 300 mg p.o. every morning in the morning 3. Acute renal insufficiency in the setting of CKD stage 3 - creatinine slightly worse today at 1.73, baseline creatinine around 1.3-1.4 -Hold lisinopril in the morning -Follow BMP 4. HTN - controlled; continue metoprolol, diltiazem as above -Discontinuing amlodipine as will be on diltiazem now -Holding lisinopril as above for renal insufficiency 5. T2DM, controlled, not on long-term insulin, with hyperglycemia here due to steroids; last hemoglobin A1c 1 month ago was very well controlled at 6.8% -We will increase Lantus again to 17 units twice daily while here -Lower correction factor for sliding scale insulin -Holding home metformin and may not be able to restart given elevated creatinine -Holding home glimepiride but can restart on discharge 6. hyperlipidemia -stable -Continue statin 7. DVT proph - Xarelto. PT, OT evals Disposition-likely to home tomorrow as long as creatinine does not continue to rise
[2017-09-30] MEDS: SIMVASTATIN 20 MG TAB PO SCH (20:40)
[2017-10-01] VITALS (13 sets, daily range): BP systolic 121–155; BP diastolic 69–90; PULSE 62–90; TEMP 36.3–36.8; O2SAT 90–99
[2017-10-01] MEDS: IPRATROPIUM BROMIDE NEB SOLN 0.02% 2.5 ML VIAL INH SCH ×4 (02:09→19:01)
[2017-10-01] MEDS: LEVALBUTEROL 1.25MG/0.5ML NEB INH SCH ×4 (02:09→19:01)
[2017-10-01] MEDS: DILTIAZEM HCL 30 MG TAB PO SCH (04:12)
[2017-10-01 06:52] LABS: HEMATOCRIT 37.7 % (42-52); HEMOGLOBIN 12.7 g/dL (14.0-18.0); MEAN CORPUSCULAR HEMOGLOBIN 31.7 pg (25-34); MEAN CORPUSCULAR HGB CONC 33.7 g/dl (32-36); MEAN PLATELET VOLUME 8.7 fL (7.4-10.4); PLATELET COUNT 371 K/uL (130-400); RED CELL DISTRIBUTION WIDTH CV 13.5 % (11.5-14.5); RED CELL DISTRIBUTION WIDTH SD 46.1 fL (36.4-46.3)
[2017-10-01 07:22] LABS: CALCIUM 8.5 mg/dl (8.5-10.1); CREATININE 1.79 mg/dl (0.60-1.40); POTASSIUM 4.6 mmol/L (3.5-5.1)
[2017-10-01] MEDS: MULTIVITAMIN TAB PO SCH (08:35)
[2017-10-01] MEDS: ASPIRIN 81 MG ECTAB PO SCH (08:36)
[2017-10-01] MEDS: BENZONATATE 100MG CAP PO SCH ×3 (08:36→20:52)
[2017-10-01] MEDS: GUAIFENESIN 600 MG TABCR PO SCH ×2 (08:37→20:52)
[2017-10-01] MEDS: METOPROLOL SUCC 50MG EXT REL TAB PO SCH (08:38)
[2017-10-01] MEDS: INSULIN GLARGINE SOLOSTAR 100 UNITS/ML 3 ML PEN SC SCH ×2 (08:48→20:57)
[2017-10-01] MEDS: INSULIN ASPART 100 UNITS/ML 3 ML PEN SC SCH ×4 (08:49→20:56)
[2017-10-01] MEDS: OSELTAMIVIR PHOSPHATE SUSP 30 MG/5 ML UDP PO SCH ×2 (08:56→20:52)
[2017-10-01] MEDS ORDERED: DILTIAZEM HCL 240 MG CAPCR PO SCH (09:00)
[2017-10-01] MEDS ORDERED: DILTIAZEM HCL 300 MG CAPCR PO SCH (09:00)
[2017-10-01] MEDS ORDERED: RIVAROXABAN TAB 15 MG TAB PO SCH (17:00)
--- NOTE | 2017-10-01 17:58 | Hospitalist Progress Note ---
Hospitalist Progress Note Date of Service October 01, 2017. Subjective Pt evaluation today including: conversation w/ patient Patient states his cough and breathing are much improved today. He did have bradycardia for a little while today into the 40s and felt lightheaded with that. His blood pressure remained stable. Currently in the 90s on telemetry. All Other Systems: Reviewed and Negative Objective Vital Signs Date Time Temp Pulse Resp B/P (MAP) Pulse Ox O2 Delivery O2 Flow Rate FiO2 10/01/17 16:00 Room Air 10/01/17 15:52 36.7 75 18 146/90 (108) 99 Room Air 10/01/17 14:23 83 16 98 Room Air 10/01/17 13:19 78 20 133/76 (95) 96 121/73 (89) 10/01/17 11:52 95 Room Air 10/01/17 11:49 36.3 86 18 155/81 (105) 97 Room Air 10/01/17 09:30 95 Room Air 10/01/17 07:57 36.8 88 22 144/71 (95) 95 Room Air 81 151/74 (99) 82 148/71 (96) 10/01/17 07:10 78 16 96 Room Air 10/01/17 04:15 Room Air 10/01/17 04:11 36.6 83 16 135/81 (99) 99 Room Air 10/01/17 02:09 62 16 90 Room Air 10/01/17 00:50 Room Air 09/30/17 23:40 36.4 76 20 138/83 (101) 95 Room Air 09/30/17 20:01 36.4 100 20 152/72 (98) 96 Room Air 09/30/17 20:00 Room Air 09/30/17 19:05 90 16 95 Room Air Physical Exam General Appearance: WD/WN, no apparent distress Eyes: normal inspection, sclerae normal ENT: hearing grossly normal Neck: trachea midline Respiratory/Chest: lungs clear, normal breath sounds, no respiratory distress, no accessory muscle use Cardiovascular: no murmur, + irregularly irregular (With normal rate) Abdomen: normal bowel sounds, non tender, soft Extremities: normal inspection, no pedal edema, no calf tenderness Neurologic/Psychiatric: alert, normal mood/affect, oriented x 3 Skin: normal color, warm/dry, no rash Laboratory Results Last 24 Hours Test 09/30/17 20:22 10/01/17 06:15 10/01/17 07:42 10/01/17 11:28 Bedside Glucose 234 mg/dl 220 mg/dl 276 mg/dl White Blood Count 16.90 K/uL Red Blood Count 4.01 M/uL Hemoglobin 12.7 g/dL Hematocrit 37.7 % Mean Corpuscular Volume 94.0 fL Mean Corpuscular Hemoglobin 31.7 pg Mean Corpuscular Hemoglobin Concent 33.7 g/dl RDW Standard Deviation 46.1 fL RDW Coefficient of Variation 13.5 % Platelet Count 371 K/uL Mean Platelet Volume 8.7 fL Sodium Level 134 mmol/L Potassium Level 4.6 mmol/L Chloride Level 100 mmol/L Carbon Dioxide Level 24 mmol/L Anion Gap 10.0 mmol/L Blood Urea Nitrogen 53 mg/dl Creatinine 1.79 mg/dl Est Creatinine Clear Calc Drug Dose 35.5 ml/min Estimated GFR () 39.5 Estimated GFR (Non- 34.0 BUN/Creatinine Ratio 29.7 Random Glucose 215 mg/dl Calcium Level 8.5 mg/dl Magnesium Level 2.5 mg/dl Test 10/01/17 16:29 Bedside Glucose 125 mg/dl Assessment and Plan This patient is an 82yo male with h/o HTN, T2DM, and CKD stage 3 who presented with acute bronchitis of 10 days duration - unresponsive to outpatient management with multiple antibiotics, steroids, and inhaler. A few days prior to admission he became worse, had myalgias, etc. He was also found to be in a. fib at time of ER presentation. 1. acute bronchitis 2nd to flu B infection-now significantly improved. Repeat chest x-ray remains without infiltrate. Initially was on doxycycline but since discontinued as illness is likely all viral in origin/due to flu B. - switched to p.o. prednisone today and will taper down Cont nebs, mucinex, incentive spirometry. -Finish out 5 day course of Tamiflu-1 more day 2. Atrial fibrillation new-onset. CHADs score is a 3. Anticoagulation is indicated and patient is agreeable to starting Xarelto. Heart rate was much better controlled after starting diltiazem, however remained in the 90s-100s. Started on diltiazem 300 mg CD this morning and had bradycardia into the 40s which is now resolved Echo with normal LV function and only with mild-moderate mitral valve regurgitation TSH and electrolytes were wnl. -Continue Xarelto 15 mg once daily with dinner -Discontinued amlodipine as is now on diltiazem -Continue metoprolol -Lower diltiazem CD back to 240 mg in the morning -We will consult cardiology given rate control issues 3. Acute renal insufficiency in the setting of CKD stage 3 - creatinine stable today at 1.79, baseline creatinine around 1.3-1.4. Likely on the basis of dehydration on admission with continued lisinopril use. -Continue to hold lisinopril -Follow BMP 4. HTN - controlled; continue metoprolol, diltiazem as above -Discontinuing amlodipine as will be on diltiazem now -Holding lisinopril as above for renal insufficiency 5. T2DM, controlled, not on long-term insulin, with continued hyperglycemia here due to steroids; last hemoglobin A1c 1 month ago was very well controlled at 6.8% -We will increase Lantus again to 18 units twice daily while here -Lower correction factor for sliding scale insulin -Holding home metformin and may not be able to restart given elevated creatinine -Holding home glimepiride but can restart on discharge 6. hyperlipidemia -stable -Continue statin 7. DVT proph - Xarelto. PT, OT evals Disposition-likely to home tomorrow as long as creatinine does not continue to rise and if rates better controlled, appreciate cardiology input
[2017-10-01] MEDS ORDERED: POLYETHYLENE (MIRALAX) 17 GM PACK PO STA (19:03)
[2017-10-01] MEDS: SIMVASTATIN 20 MG TAB PO SCH (20:52)
[2017-10-02] VITALS (9 sets, daily range): BP systolic 125–151; BP diastolic 74–79; PULSE 76–95; TEMP 36.3–36.4; O2SAT 93–99
[2017-10-02] MEDS: LEVALBUTEROL 1.25MG/0.5ML NEB INH SCH ×3 (01:44→13:32)
[2017-10-02] MEDS: IPRATROPIUM BROMIDE NEB SOLN 0.02% 2.5 ML VIAL INH SCH ×3 (01:44→13:32)
[2017-10-02 08:17] LABS: CALCIUM 8.6 mg/dl (8.5-10.1); CREATININE 1.7 mg/dl (0.60-1.40); POTASSIUM 4.7 mmol/L (3.5-5.1)
[2017-10-02] MEDS: INSULIN GLARGINE SOLOSTAR 100 UNITS/ML 3 ML PEN SC SCH (08:17)
[2017-10-02] MEDS: INSULIN ASPART 100 UNITS/ML 3 ML PEN SC SCH ×2 (08:17→12:11)
[2017-10-02] MEDS: GUAIFENESIN 600 MG TABCR PO SCH (08:20)
[2017-10-02] MEDS: BENZONATATE 100MG CAP PO SCH (08:20)
[2017-10-02] MEDS: MULTIVITAMIN TAB PO SCH (08:20)
[2017-10-02] MEDS: ASPIRIN 81 MG ECTAB PO SCH (08:21)
[2017-10-02] MEDS: METOPROLOL SUCC 50MG EXT REL TAB PO SCH (08:21)
[2017-10-02] MEDS: OSELTAMIVIR PHOSPHATE SUSP 30 MG/5 ML UDP PO SCH (08:28)
[2017-10-02] MEDS ORDERED: DILTIAZEM HCL 240 MG CAPCR PO SCH (09:00)
[2017-10-02] MEDS ORDERED: PRED10TA PO (11:24)
[2017-10-02] MEDS ORDERED: OSEL30CA PO (11:24)
[2017-10-02] MEDS ORDERED: GLC/500 PO (11:24)
[2017-10-02] MEDS ORDERED: DLTCD/240 PO (11:24)
[2017-10-02] MEDS ORDERED: XRL15 PO (11:24)
[2017-10-02] MEDS ORDERED: LISI-792 PO (11:24)
--- NOTE | 2017-10-02 11:28 | Discharge Instructions ---
Discharge Instructions Date of Service October 02, 2017. Admission Reason for Admission: Acute Bronchitis, Atrial Fibrillation Discharge Discharge Diagnosis / Problem: Influenza B, Acute bronchitis,Rapid atrial fibrillation Discharge Goals Goal(s): Improve disease control, Diagnostic testing, Therapeutic intervention Activity Recommendations Activity Limitations: as noted below Exercise/Sports Limitations: gradually increase as tolerated Shower/Bathe: no limitations Driving or Machine Use: no limitations . Instructions / Follow-Up Instructions / Follow-Up You were admitted for bronchitis due to Influenza B and treated with steroids, Tamiflu, and breathing treatments. You did NOT have Pneumonia. You also had an irregular rapid heartbeat called Atrial Fibrillation and were treated with medication to control your heart rate. A blood thinner called Xarelto was started for this to prevent you from having a stroke. Your kidney function was decreased a bit from usual and you should NOT take your metformin or lisinopril until after this has improved. Please have your blood work checked in 2 days and call your PCP for the results. Please follow up with your PCP within 1 week and with Cardiology within 3 weeks. Current Hospital Diet Patient's current hospital diet: Diabetes Type 2 Diet Discharge Diet Recommended Diet: Diabetes Type 2 Diet Procedures Procedures Performed: Echocardiogram Chest xrays Pending Studies Studies pending at discharge: no Laboratory Results Last 24 Hours Test 10/01/17 11:28 10/01/17 16:29 10/01/17 20:46 10/02/17 07:23 Bedside Glucose 276 mg/dl 125 mg/dl 184 mg/dl Sodium Level 133 mmol/L Potassium Level 4.7 mmol/L Chloride Level 100 mmol/L Carbon Dioxide Level 26 mmol/L Anion Gap 7.0 mmol/L Blood Urea Nitrogen 55 mg/dl Creatinine 1.70 mg/dl Est Creatinine Clear Calc Drug Dose 37.4 ml/min Estimated GFR () 42.0 Estimated GFR (Non- 36.2 BUN/Creatinine Ratio 32.1 Random Glucose 193 mg/dl Calcium Level 8.6 mg/dl Magnesium Level 2.4 mg/dl Test 10/02/17 07:43 Bedside Glucose 192 mg/dl Hemoglobin A1c Test 09/05/17 09:25 Range/Units Estimated Average Glucose 148 mg/dl Hemoglobin A1c 6.8 H 4.5-5.6 % Lipid Panel Test 09/05/17 09:25 Range/Units Triglycerides Level 152 H 0-150 mg/dl Cholesterol Level 159 0-200 mg/dl HDL Cholesterol 49 mg/dl Cholesterol/HDL Ratio 3.2 LDL Cholesterol, Calculated 80 mg/dl Medical Emergencies . Who to Call and When: Medical Emergencies: If at any time you feel your situation is an emergency, please call 911 immediately. . Non-Emergent Contact Non-Emergency issues call your: Primary Care Provider Call Non-Emergent contact if: temperature is above 101, you have any medication questions . . "Provider Documentation" section prepared by Ayesha Villarreal. .
--- NOTE | 2017-10-02 11:32 | Discharge Summary ---
Discharge Summary Date of Service October 02, 2017. Discharge Summary Admission Date: September 28, 2017 at 11:26 Discharge Date: October 02, 2017 Discharge Disposition: Home Principal Diagnosis: Influenza B,Acute bronchitis,Rapid atrial fibrillation Problems/Secondary Diagnoses: HTN DMII controlled, not on long-term insulin, with hyperglycemia CKD stage III Mild-moderate mitral valve regurgitation Bradycardia Acute renal insufficiency in the setting of CKD stage III Hyperlipidemia Immunizations: Have You Had Influenza Vaccine: Yes History of Tetanus Vaccine?: Yes History of Pneumococcal: Yes History of Hepatitis B Vaccine: Yes Procedures: ECHO CXRs Consultations: Cardiology Medication Reconciliation New Medications: Oseltamivir Phosphate (Tamiflu) 30 Mg Cap 1 CAP PO BID, #3 CAP Diltiazem Hcl (Diltiazem Cd) 240 Mg Capcr 240 MG PO QAM for 30 Days, #30 CAP Rivaroxaban (Xarelto) 15 Mg Tab 15 MG PO QDD, #30 TAB Changed Medications: Lisinopril (Zestril) 20 Mg Tab 20 MG PO QAM for 30 Days, #30 TAB (Medication details modified) DO NOT TAKE UNTIL INSTRUCTED TO BY YOUR MD Metformin Hcl (Glucophage) 500 Mg Tab 500 MG PO BID for 30 Days (Medication details modified) DO NOT TAKE UNTIL INSTRUCTED TO BY YOUR MD Metoprolol Succinate (Toprol Xl) 100 Mg Tab 50 MG PO QAM for 30 Days (Changed from: 100 MG) Prednisone (Prednisone) 10 Mg Tab 40 MG PO QAM, #10 TAB (Changed from: TAPER DOSE FOR 5 DAYS DIRECTED. FIRST DOSE 5/3) x 1 day then take 30mg daily x 1 day htne 20mg daily x 1 day then 10mg daily x 1 day then STOP Continued Medications: Aspirin (Aspirin Ec) 81 Mg Tab 81 MG PO QAM Fluticasone Propionate (Nasal) (Flonase Allergy Relief) 50 Mcg/Act Spr 1 SPRAY GLORIA DAILY PRN for SINUS CONGESTION Glimepiride (Glimepiride) 4 Mg Tab 4 MG PO DAILY Hydrocodone/Homatropine (Hydromet) 1 Ml Syrp 5 ML PO Q4H Multiple Vitamin (Multiple Vitamin) 1 Tab Tab 1 TABLET PO QAM Simvastatin (Zocor) 20 Mg Tab 20 MG PO QPM, TAB Discontinued Medications: Amlodipine (Norvasc) 5 Mg Tab 5 MG PO QAM, TAB Levofloxacin (Levaquin) 500 Mg Tab 500 MG PO DAILY FOR 10 DAYS. FIRST DOSE STARTED 5/3 Discharge Exam Feeling much better. Telemetry with heart rates in the 80s-100,then mid day of discharge he had a few brief dips into the 40s that were completely asymptomatic , vitals were normal otherwise. No CP or SOB, no cough, no abd pain, is moving bowels, john po. No more lightheadedness or bradycardia Review of Systems: Constitutional: No fever, No chills Eyes: No problem reported ENT: No problem reported Respiratory: No problem reported Cardiovascular: No problem reported Abdomen: No problem reported Musculoskeletal: No problem reported Genitourinary - Male: No problem reported Neurologic: No problem reported Psychiatric: No problem reported Endocrine: No problem reported Hematologic / Lymphatic: No problem reported Integumentary: No problem reported Physical Exam: General Appearance: WD/WN, no apparent distress Eyes: normal inspection, sclerae normal ENT: hearing grossly normal Neck: trachea midline Respiratory/Chest: no respiratory distress, no accessory muscle use, + rhonchi (at right base) Cardiovascular: no murmur, + irregularly irregular (with normal rate) Abdomen / GI: normal bowel sounds, non tender, soft Extremities: normal inspection, no calf tenderness, + pertinent finding ( trace pitting edema legs bilat) Neurologic/Psychiatric: alert, normal mood/affect, oriented x 3 Skin: normal color, warm/dry, no rash Hospital Course This patient is an 82yo male with h/o HTN, T2DM, and CKD stage 3 who presented with acute bronchitis of 10 days duration - unresponsive to outpatient management with multiple antibiotics, steroids, and inhaler. A few days prior to admission he became worse, had myalgias, etc. He was also found to be in a. fib at time of ER presentation. 1. acute bronchitis 2nd to flu B infection-now significantly improved. Repeat chest x-ray remains without infiltrate. Not requiring O2 Initially was on doxycycline but since discontinued as illness is likely all viral in origin/due to flu B. - switched to p.o. prednisone and will taper down after discharge -continue mucinex -Finish out 5 day course of Tamiflu-1 more day 2. Atrial fibrillation new-onset. CHADs score is a 3. Anticoagulation is indicated and patient is agreeable to starting Xarelto. Heart rate was much better controlled after starting diltiazem, however remained in the 90s-100s. Started on diltiazem 300 mg CD and had bradycardia into the 40s which is now resolved after lowering dose to 240mg daily Echo with normal LV function and only with mild-moderate mitral valve regurgitation TSH and electrolytes were wnl. -Continue Xarelto 15 mg once daily with dinner -Discontinued amlodipine as is now on diltiazem -Continue metoprolol but at lower dose of 50mg given some bradycardia -continue diltiazem CD 240 mg in the morning -Cardiology consultation obtained and recommend f/u in office in 3 weeks, may require DCCV after on AC for 3 weeks 3. Acute renal insufficiency in the setting of CKD stage 3 - creatinine slightly improved today at 1.70, baseline creatinine around 1.3-1.4. Likely on the basis of dehydration on admission with continued lisinopril use. -Continue to hold lisinopril after discharge and advised to repeat labs in 2 days and await further instructions from PCP -also holding metformin 4. HTN - controlled; continue metoprolol, diltiazem as above -Discontinued amlodipine as will be on diltiazem now -Holding lisinopril as above for renal insufficiency 5. T2DM, controlled, not on long-term insulin, with hyperglycemia here due to steroids; last hemoglobin A1c 1 month ago was very well controlled at 6.8% -received Lantus and SSI while here, but not necessary at home as prednisone will taper down and then glucose should be much improved -Holding home metformin and may not be able to restart given elevated creatinine -restart home glimepiride on discharge 6. hyperlipidemia -stable -Continue statin 7. DVT proph - Xarelto. Stable for discharge to home today Total Time Spent: Greater than 30 minutes This includes examination of the patient, discharge planning, medication reconciliation, and communication with other providers. Discharge Instructions Please refer to the electronic Patient Visit Report (Discharge Instructions) for additional information. Follow-Up PCP within 1 week Cardiology within 3 weeks Additional Copies To Ye Bazan M.D.
--- NOTE | 2017-10-02 12:12 | Clinical Documentation Query ---
CLINICAL DOCUMENTATION QUERY 82 yo male admitted with influenza and secondary diagnoses of "acute renal insufficiency in the setting of CKD stage 3". In your clinical opinion is this patient being managed for: ( ) Acute kidney failure in the setting of CKD stage 3 ( x ) Not Agree- his baseline creatinine is 1.4 so does not meet definition of LOGAN ( ) Other explanation of clinical findings (Please Explain. If no explanation given, this would be considered a no response.) ( ) Unable to determine ( ) Need to Discuss (Please call CDS via extension or qliq. If no interaction occurs this is considered a no response.) The medical record reflects the following clinical findings, treatment, and risk factors. Clinical Indicators: As above, creatinine ranges 1.69 to 1.79 Treatment: IV hydration, serial PRPs Risk Factors: CKD 3, A fib, Diastolic CHF Please clarify and document your clinical opinion in the progress notes and discharge summary. Terms such as "probable", "suspected", "likely", "questionable", "possible", or "still to be ruled out" are acceptable. IF IN AGREEMENT, YOU MUST DOCUMENT ABOVE DIAGNOSTIC STATEMENT IN DAILY PROGRESS NOTES AND DISCHARGE SUMMARY. This document is not part of the patient's record. Thank You, Madhuri Laird RN [phone]
--- NOTE | 2017-10-02 12:49 | CARDIOLOGY CONSULTATION REPORT ---
DATE OF CONSULTATION: 10/02/2017 REASON FOR CONSULTATION: New-onset Atrial Fibrillation. HISTORY OF PRESENT ILLNESS: Mr. Dwyer is a very pleasant 82-year-old white male with a history of type 2 diabetes mellitus, hypertension, obstructive sleep apnea, stage III chronic kidney disease, and prostate cancer s/p prostatectomy in 1996 -- who presented acutely to [facility] Emergency Room on 09/28/2017, complaining of cough, chest congestion, purulent sputum production, fever, anorexia, and dyspnea on exertion which began on 09/18/2017. The patient was seen at an Urgent Care Center, and initially diagnosed with an upper respiratory tract infection. He was sent home with an albuterol inhaler and Tessalon Perles. He returned to that Urgent Care Center 2 days later because of worsening symptoms. He was diagnosed with an acute bronchitis and was treated with Z-Héctor and prednisone. He was seen earlier last week by another provider, and diagnosed with possible pneumonia. He was subsequently started on Levaquin, and he received another prednisone taper. As he was not responding, he came down to our Emergency Room. In the Emergency Room, he was noted to be in new-onset atrial fibrillation with a controlled ventricular response rate. This is a new diagnosis for him, and he denies any prior cardiac history or prior cardiac events. The patient specifically denied any history of CAD, SC, CHF, rheumatic fever, or prior history of strokes or mini strokes. He is currently being seen in room #278, bed 2, and he offers no complaints. He continues to have cough, but his shortness of breath has improved. Up until his most recent illness, he has remained physically active on daily basis which includes his yard work, walking, carrying groceries, carrying laundry, etc., and has been able to do things without difficulty. He specifically denies any exertional chest pain, heaviness, tightness, pressure, or chest discomfort. He denies any exertional neck, jaw, back or arm pain. He has not experienced any unusual dyspnea on exertion until he was ill with his current respiratory illness. He denies any history of orthopnea or PND. The patient further denies any history of palpitations, tachy-palpitations, syncope or near syncope. On admission, the patient was maintained on his usual dose of Toprol-XL 100 mg daily, and he was switched from amlodipine 5 mg daily to diltiazem CD 300 mg daily. After receiving diltiazem CD 300 mg daily, he was noted to be bradycardic at times yesterday with heart rates down into the 40s. Diltiazem dosage was cut back to 240 mg daily as of today, and he has not had any further periods of bradycardia on telemetry monitoring so far. The patient has also been started on Xarelto 15 mg daily for thromboembolic prophylaxis. MEDICATIONS: 1. Prednisone 60 mg daily. 2. Cardizem CD 240 mg daily. 3. Lantus insulin 80 units subcutaneous injection b.i.d. 4. Xarelto 15 mg daily. 5. Aspirin 81 mg daily. 6. Toprol-XL 100 mg daily. 7. Multivitamin. 8. Zocor 20 mg daily. 9. Mucinex 1200 mg p.o. q. 12 hours. 10. Robitussin AC 5 mL q. 6 hours p.r.n. for cough. 11. NovoLog sliding scale insulin. 12. Tamiflu b.i.d. 13. Tessalon Perles 100 mg t.i.d. 14. Atrovent and Xopenex nebulizers q. 6 hours. 15. Tylenol p.r.n. 16. Maalox Max p.r.n. 17. Milk of magnesia p.r.n. 18. Zofran p.r.n. 19. Sublingual nitroglycerin p.r.n. 20. MiraLax 17 g daily as needed. ALLERGIES: 1. TRIAMCINOLONE. 2. NYSTATIN. PAST MEDICAL HISTORY: 1. Newly-diagnosed atrial fibrillation. 2. Hypertension. 3. Type 2 diabetes mellitus. 4. Stage III chronic kidney disease. 5. Chronic anemia. 6. Obstructive sleep apnea, on CPAP. 7. History of prostate cancer, status post radical prostatectomy in 1996. 8. Actinic keratosis. 9. History of allergic rhinitis. 10. History of bilateral cataracts, status post surgical intervention. 11. Mixed hearing loss. 12. Polyp at the sigmoid colon. 13. History of stasis dermatitis. 14. He is currently being treated for suspected bronchitis and acute influenza B. SOCIAL HISTORY: The patient is and lives with his in [place], [place]. He is a lifelong nonsmoker. He is retired from [employer]. FAMILY HISTORY: Father had COPD, at the age of 72. Mother at the age of 54 with hepatocellular cancer. PHYSICAL EXAMINATION: VITAL SIGNS: Temperature is 36.4 degrees Celsius, pulse is 85-90 and irregularly irregular, respiratory rate is 17. Blood pressure is 150/79. SpO2 is 95% on room air. GENERAL: The patient is in no acute distress. HEENT: Head is atraumatic, normocephalic. EOMs intact. Sclera anicteric. Faces symmetric. No perioral cyanosis. NECK: Without JVD. Carotid upstrokes +2 bilaterally without bruits. CHEST AND LUNGS: Essentially clear with the exception of few scattered wheezes. These cleared with coughing. CARDIOVASCULAR: S1 and S2 are irregularly irregular at a rate of approximately 90 beats per minute. No obvious murmurs, gallops or rubs. PMI is nondisplaced. No lifts, heaves, or thrills. No abdominal aortic or renal bruits. ABDOMEN: Bowel sounds are present. No masses, organomegaly, or tenderness. EXTREMITIES: Without clubbing or cyanosis. +1 ankle edema bilaterally. Intact radial pulses bilaterally. NEUROLOGIC: The patient is awake, alert and oriented. Pleasant and cooperative. Answers questions appropriately. Speech is clear. Normal movement in all 4 extremities. Gait pattern is not assessed. Current telemetry monitoring reveals atrial fibrillation with controlled ventricular response rate. Telemetry monitoring yesterday at 1317 revealed atrial fibrillation with a slow ventricular response rate (V rate approximately 42 BPM). Longest R-R interval was 2.6 seconds. LABORATORIES: White blood cell count is 16.9. Hemoglobin 12.7 g/dL, hematocrit 37.7% and platelet count 371,000. Sodium level is 133 mmol/L, potassium 4.7 mmol/L. BUN 55 mg/dL, creatinine 1.70 mg/dL. Random glucose is 192 mg/dL. Serum magnesium level was 2.4 mg/dL. Troponin I on admission was less than 0.015 ng/mL. ProBNP was moderately elevated at 7059 pg/mL, but he had no evidence of CHF or pulmonary edema. Echocardiogram 09/28/2017 shows the followin. LVEF 65-70%. 2. Normal LV size and systolic function. 3. Mild concentric LVH. 4. No regional wall motion abnormalities. 5. [id number]-gdroycsq MR. 6. Mild TR. 7. Mildly dilated left atrium. ASSESSMENT: 1. Newly diagnosed Atrial Fibrillation with controlled ventricular response rate. 2. Transient slow ventricular response rate yesterday, likely medication induced, but may have an underlying component of tachy-tomy syndrome. 3. Acute influenza B, complicated by bronchitis. 4. Mild concentric LVH. 5. Normal LV systolic function. 6. Bzii-nj-fyvynsds MR. 7. Mild TR. 8. Type 2 diabetes mellitus. 9. Hypertension. 10. Diagnosis as mentioned above. PLAN: 1. The patient continues to recover from his acute respiratory illness, and his respiratory status is gradually improving. 2. He is currently in Atrial Fibrillation with controlled ventricular response rate. 3. I had a long discussion with the patient today regarding what atrial fibrillation is, the natural history of atrial fibrillation, and we discussed various management strategies. 4. He is asymptomatic with his atrial fibrillation to the best of our knowledge. However, we discussed that if he does have symptoms in the future, could consider actively attempting to get him back to a normal sinus rhythm. 5. At this time, recommend ongoing Toprol-XL 100 mg daily. 6. Continue Diltiazem CD 240 mg daily. 7. Continue Xarelto 15 mg daily. 8. We will plan on seeing him back in the office at approximately 3-4 weeks at which time we will reassess his heart rate, rhythm, and discuss ongoing management of his atrial fibrillation. 9. All of the patient's questions were answered to his satisfaction. BASHIR
[2017-10-02] MEDS ORDERED: METO-479 PO (13:22)
== END 2017-10-02 14:28 | disposition home or self-care (01) | DRG 195 ==
LOC: C.EDB 08:20 → C.MED 11:26 → ENRESERV 12:04
PROVIDERS: ADMIT Internal Medicine; ATTEND Family Medicine
DX: J10.1 Influenza due to other identified influenza virus with other respiratory manifestations (principal); J20.9 Acute bronchitis, unspecified; I48.91 Unspecified atrial fibrillation; I12.9 Hypertensive chronic kidney disease with stage 1 through stage 4 chronic kidney disease, or unspecified chronic kidney disease; E11.22 Type 2 diabetes mellitus with diabetic chronic kidney disease; N18.3 Chronic kidney disease, stage 3 (moderate); N28.9 Disorder of kidney and ureter, unspecified; E11.65 Type 2 diabetes mellitus with hyperglycemia; T38.0X5A Adverse effect of glucocorticoids and synthetic analogues, initial encounter; E78.5 Hyperlipidemia, unspecified; G47.33 Obstructive sleep apnea (adult) (pediatric); Z85.46 Personal history of malignant neoplasm of prostate; Z90.79 Acquired absence of other genital organ(s); Z79.82 Long term (current) use of aspirin; Z79.84 Long term (current) use of oral hypoglycemic drugs; Z79.899 Other long term (current) drug therapy; Z88.3 Allergy status to other anti-infective agents; Z82.5 Family history of asthma and other chronic lower respiratory diseases; Z80.0 Family history of malignant neoplasm of digestive organs

== ENCOUNTER → 2017-10-04 | Outpatient (CLI) | payer BC, OTHER ==
[~2017-10-04] MED LIST changes: -AMLO-110 PO; +DLTCD/240 PO; +GLC/500 PO; +HYDR0.75 PO; -METF-382 PO; +OSEL30CA PO; +PRED10TA PO; +XRL15 PO
[2017-10-04 12:42] LABS: BLOOD UREA NITROGEN 47 mg/dl (7-18); CALCIUM 8.6 mg/dl (8.5-10.1); CARBON DIOXIDE 22 mmol/L (21-32); CREATININE 1.82 mg/dl (0.60-1.40); GLUCOSE 199 mg/dl (70-99); POTASSIUM 4.7 mmol/L (3.5-5.1); SODIUM 131 mmol/L (136-145)
== END | disposition home or self-care (01) ==
LOC: C.LABBFT 09:20
PROVIDERS: ATTEND Family Medicine
DX: N17.9 Acute kidney failure, unspecified (principal)

== ENCOUNTER → 2017-10-16 | Outpatient (CLI) | payer BC, OTHER ==
[2017-10-16 16:46] LABS: ALBUMIN 3.1 gm/dl (3.4-5.0); ALKALINE PHOSPHATASE 76 U/L (45-117); ALT/SGPT 27 U/L (12-78); AST/SGOT 15 U/L (15-37); BLOOD UREA NITROGEN 25 mg/dl (7-18); CALCIUM 8.7 mg/dl (8.5-10.1); CARBON DIOXIDE 27 mmol/L (21-32); CREATININE 1.77 mg/dl (0.60-1.40); GLUCOSE 171 mg/dl (70-99); POTASSIUM 4.7 mmol/L (3.5-5.1); SODIUM 135 mmol/L (136-145)
== END | disposition home or self-care (01) ==
LOC: C.LABBFT 13:26
PROVIDERS: ATTEND Internal Medicine
DX: I10 Essential (primary) hypertension (principal)

== ENCOUNTER → 2017-12-17 | Outpatient (CLI) | payer BC, OTHER ==
[2017-12-17 13:52] LABS: BLOOD UREA NITROGEN 37 mg/dl (7-18); CALCIUM 9.4 mg/dl (8.5-10.1); CARBON DIOXIDE 29 mmol/L (21-32); CREATININE 1.66 mg/dl (0.60-1.40); GLUCOSE 102 mg/dl (70-99); POTASSIUM 3.7 mmol/L (3.5-5.1); SODIUM 136 mmol/L (136-145)
== END | disposition home or self-care (01) ==
LOC: C.LABBFT 10:51
PROVIDERS: ATTEND Physician Assistant Medical
DX: R60.0 Localized edema (principal)

== ENCOUNTER 2020-08-20 07:58 | Inpatient (IN) ==
[2020-08-20] MEDS ORDERED: SODIUM CHLORIDE 0.9% 1000ML 1,000 ML IV ONE ×2 (08:38→10:24)
[2020-08-20] MEDS ORDERED: cefTRIAXone SODIUM 1,000 MG/50 ML BAG IV STA (08:38)
[2020-08-20] MEDS ORDERED: ACETAMINOPHEN 500 MG TAB PO STA (08:38)
--- NOTE | 2020-08-20 08:42 | Emergency Department Note ---
Impression & Plan SIRS (systemic inflammatory response syndrome), Leukocytosis, Febrile, URI (upper respiratory infection) ED Provider Note NAME: URBANO EDWARDS AGE: 85 SEX: M : 1935 ARRIVES VIA: Walk-In INFORMANT: Patient ED PROVIDER(S): Parminder Purvis DO CHIEF COMPLAINT: Cough and shortness of breath HPI: Patient is an 85-year-old male who presents the ER for cough and shortness of breath. Symptoms started this past Saturday. He has a yellow productive sputum coming up. He notes this is new. He does feel weak. He denies any headache or change in vision. He admits to chest pain which has been present since Saturday as well. It is a dull constant ache. He denies any belly pain, nausea, vomiting or diarrhea. No dysuria, urgency, or frequency. No other exacerbating or remitting factors. Unsure when the fever started ROS: See above HPI for pertinent positives & negatives. A total of 10 systems reviewed and were otherwise negative. PAST MEDICAL HISTORY:See Below PAST SURGICAL HISTORY:See Below FAMILY HISTORY:See Below SOCIAL HISTORY:See Below HOME MEDICATIONS:See Below ALLERGIES:See Below VITALS:See Below PHYSICAL EXAMINATION: GENERAL: Sitting up in bed, alert, well appearing, persistent cough EYE EXAM: normal conjunctiva. OROPHARYNX: no exudate, no erythema, lips, buccal mucosa, and tongue normal and mucous membranes are moist NECK: supple, no nuchal rigidity, no adenopathy, non-tender LUNGS: Clear to auscultation. Normal chest wall mechanics HEART: no murmurs, S1 normal and S2 normal ABDOMEN: abdomen soft, non-tender, normo-active bowel sounds, no masses, no rebound or guarding. BACK: Back is symmetrical on inspection and there is no deformity, no midline tenderness, no CVA tenderness. SKIN: no rashes and no bruising UPPER EXTREMITIES: upper extremities are grossly normal. LOWER EXTREMITIES: No pitting edema. NEURO EXAM: Normal sensorium, cranial nerves II-XII grossly intact, normal speech, no gross weakness of arms, no gross weakness of legs. MEDICAL DECISION MAKING: Patient is an 85-year-old male who presents the ER for upper respiratory symptoms. He was found to be febrile and slightly tachycardic. IV was established blood work obtained. Labs show leukocytosis of 19,000. No signif icant anemia. INR unremarkable. BMP with a creatinine of 1.68 with a baseline around 1.5. Lactate was at 2.9. LFTs bilirubin was unremarkable. UA was negative. Covid was negative. Chest x-ray was unremarkable. He was given IV Rocephin and azithromycin. He was given fluids. He was updated bedside. Discussed with the hospitalist for further evaluation. After discussion with Dr. Maza did repeat abdominal exam and he notes now he has some mild left lower quadrant abdominal pain. He did not notice this before. Dr. Maza ordered CT chest and belly. Triage Nursing notes reviewed. Limited review of prior medical records performed Vital Signs: reviewed and remarkable for febrile, hypertensive Differential diagnosis: Differential diagnosis includes etiologies such as sepsis, UTI, pneumonia, metabolic, electrolyte abnormalities, cardiac sources, intracerebral event, toxicologic, neurological, as well as others were entertained. ER treatment provided: See below Diagnostics interpreted by me: ECG: A. fib RVR rate of 119 Normal axis Right bundle branch block QTC 483 Cardiac Monitoring: An order was placed for continuous cardiac monitoring. The monitor shows a rate of 105 with afib rhythm. Laboratory studies: As stated above and show below. Imaging studies: Portable AP upright 1 view of the chest shows no focal infiltrate or pneumothorax Consultation(s): Discussed with Dr. 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 Shortness of breath on exertion Sleep apnea CPAP Surgical History History of bilateral cataract extraction History of colonoscopy History of endoscopic sinus surgery History of open reduction and internal fixation (ORIF) procedure right femur--hardware in place History of prostate biopsy x2--malignant History of prostatectomy 1996 d/t cancer History of tooth extraction Family History Father Pure hypercholesterolemia COPD (chronic obstructive pulmonary disease) Hypertension Mother Cancer Sister Hypertension Brother Hypertension Ulcerative colitis Other No family history of adverse response to anesthesia Social History Smoking Status: Never smoker Tobacco Type: Cigarettes Second Hand Exposure: No (father smoked); Hx Alcohol Use: No Hx Substance Use: No Preferred Language: [place] Communication Ability: Effective Visual Impairment: Limited Hearing Ability: Use of Hearing Aid Professor Of Languages Required: No Beliefs That Will Affect Care: Spiritual marital status: Current Living Situation: Spouse current occupational status: retired Feels Safe at Home: Yes Safety Concerns: Feels Safe At This Time Childhood Exposure to Second-Hand Smoke: Yes caffeine: Yes Dental Care, Regularly: Yes Physical Activity Frequency: 3-4 Times per Week Physical Activity Frequency Comment: yardwork Seatbelt Use: always Sunscreen Use: Yes Do you think of yourself as: straight/heterosexual Assistive Devices: Cane, CPAP and Hearing Aid - Bilateral Allergies Allergies Allergy/AdvReac Type Severity Reaction Status Date / Time nystatin Allergy Mild Rash Verified 08/11/20 11:52 triamcinolone Allergy Mild Rash Verified 08/11/20 11:52 Home Meds Home Medications Medication Instructions Recorded Confirmed Centrum Silver 1 tab PO QAM 10/22/18 08/11/20 aspirin 81 mg PO QAM 10/22/18 08/11/20 ascorbate calcium (vitamin C) 500 500 mg PO DAILY 01/12/20 08/11/20 mg tablet cholecalciferol (vitamin D3) 1 tab PO DAILY 01/12/20 08/11/20 Previous Rx's Medication Instructions Recorded inhalational spacing device #1 ea 05/02/19 metformin 500 mg tablet 1,000 mg PO DAILY #180 tab 10/09/19 blood sugar diagnostic #100 ea 10/15/19 albuterol sulfate 90 mcg/actuation See Rx Instructions .ROUTE 01/12/20 aerosol inhaler .COMPLEX PRN #8.5 gm torsemide 20 mg tablet 20 mg PO QAM #90 tab 03/14/20 atorvastatin 10 mg tablet 10 mg PO HS #90 tab 06/08/20 diltiazem HCl 240 mg 240 mg PO QAM #180 cap 06/28/20 capsule,extended release 24 hr glimepiride 4 mg tablet 4 mg PO QAM #180 tab 06/28/20 rivaroxaban 15 mg tablet 15 mg PO QPM #90 tab 07/21/20 Results & Data (ED) Vital Signs Vital Signs - 24 hr 08/20/20 08:03 08/20/20 08:40 08/20/20 08:59 Temperature 38.5 C H Temperature Source Skin Pulse Rate 99 H Pulse Rate [Left Finger] 108 H Pulse Rhythm [Left Finger] Regular Pulse Strength [Left Finger] Normal Respiratory Rate 20 22 Respiratory Effort / Characteristics Non-Labored Spontaneous Non-Labored Spontaneous Non-Labored Respiratory Depth Normal Normal Normal Respiratory Pattern Regular Regular Regular Blood Pressure 161/86 H Blood Pressure [Left Arm] 182/89 H Blood Pressure Mean 111 Blood Pressure Mean [Left Arm] 120 Blood Pressure Position [Left Arm] Sitting Pulse Oximetry 95 95 92 Oxygen Delivery Method Room Air Room Air Room Air Sepsis Recent Fever Within 48 Hours Yes Sepsis New/Unexplained Change in Mental Status N/A Sepsis Action Taken by Nursing No Action Required 08/20/20 10:08 Temperature 36.9 C Temperature Source Oral Pulse Rate Pulse Rate [Left Finger] 104 H Pulse Rhythm [Left Finger] Pulse Strength [Left Finger] Respiratory Rate 25 H Respiratory Effort / Characteristics Respiratory Depth Respiratory Pattern Blood Pressure Blood Pressure [Left Arm] 149/80 H Blood Pressure Mean Blood Pressure Mean [Left Arm] 103 Blood Pressure Position [Left Arm] Sitting Pulse Oximetry 98 Oxygen Delivery Method Room Air Sepsis Recent Fever Within 48 Hours Sepsis New/Unexplained Change in Mental Status Sepsis Action Taken by Nursing Laboratory Data Result diagrams: 08/20/20 08:48 08/20/20 08:48 Lab Results 08/20/20 08/20/20 08/20/20 Range/Units 08:48 08:48 08:48 WBC 19.11 H (4.8-10.8) K/uL RBC 4.23 L (4.7-6.1) M/uL Hgb 13.9 L (14.0-18.0) g/dL Hct 40.1 L (42-52) % MCV 94.8 (80-100) fL MCH 32.9 (25-34) pg MCHC 34.7 (32-36) g/dL RDW Std Deviation 46.4 H (36.4-46.3) fL RDW Coeff of Karis 13.5 (11.5-14.5) % Plt Count 234 (130-400) K/uL MPV 9.6 (7.4-10.4) fL Immature Gran % (Auto) 0.2 % Neut % (Auto) 85.4 % Lymph % (Auto) 3.0 % [place] % (Auto) 8.4 % Eos % (Auto) 2.9 % Baso % (Auto) 0.1 % Neut # (Auto) 16.31 H (1.4-6.5) K/uL Lymph # (Auto) 0.58 L (1.2-3.4) K/uL [place] # (Auto) 1.61 H (0.11-0.59) K/uL Eos # (Auto) 0.55 H (0-0.5) K/uL Baso # (Auto) 0.02 (0-0.2) K/uL Immature Gran # (Auto) 0.04 H (0.00-0.02) K/uL PT 10.9 (9.0-12.0) Seconds INR 1.1 (0.9-1.1) APTT 24.4 (21.0-31.0) Seconds PTT Ratio 0.9 Sodium 134 L (136-145) mmol/L Potassium 4.3 (3.5-5.1) mmol/L Chloride 101 (98-107) mmol/L Carbon Dioxide 26 (21-32) mmol/L Anion Gap 7.0 (3-11) BUN 29 H (7-18) mg/dl Creatinine 1.68 H (0.6-1.4) mg/dl Est Cr Clr Drug Dosing 34.0 ml/min Est GFR ( Amer) 41.7 Est GFR (Non-Af Amer) 36.0 BUN/Creatinine Ratio 17.3 (10-20) Glucose 178 H (70-99) mg/dl Lactate (0.4-2.0) mmol/L Calcium 9.5 (8.5-10.1) mg/dl Magnesium 1.9 (1.8-2.4) mg/dl Total Bilirubin 0.9 (0.2-1) mg/dl AST 20 (15-37) U/L ALT 21 (12-78) U/L Alkaline Phosphatase 78 (45-117) U/L Total Protein 7.8 (6.4-8.2) gm/dl Albumin 3.8 (3.4-5.0) gm/dl Globulin 4.0 (2.5-4.0) gm/dl Albumin/Globulin Ratio 1.0 (0.9-2) Specimen Hemolysis Urine Color Urine Appearance (Clear) Urine pH (4.5-7.5) Ur Specific [place] (1.000-1.030) Urine Protein (Negative) Urine Glucose (UA) (Negative) Urine Ketones (Negative) Urine Blood (Negative) Urine Nitrite (Negative) Urine Bilirubin (Negative) Urine Urobilinogen (Negative) Ur Leukocyte Esterase (Negative) COVID-19 Eval Order SARS-CoV-2 (PCR) (Negative) Influenza Type A (PCR) (Neg) Influenza Type B (PCR) (Neg) RSV (RT-PCR) (Neg) 08/20/20 08/20/20 08/20/20 Range/Units 08:48 08:48 08:48 WBC (4.8-10.8) K/uL RBC (4.7-6.1) M/uL Hgb (14.0-18.0) g/dL Hct (42-52) % MCV (80-100) fL MCH (25-34) pg MCHC (32-36) g/dL RDW Std Deviation (36.4-46.3) fL RDW Coeff of Karis (11.5-14.5) % Plt Count (130-400) K/uL MPV (7.4-10.4) fL Immature Gran % (Auto) % Neut % (Auto) % Lymph % (Auto) % [place] % (Auto) % Eos % (Auto) % Baso % (Auto) % Neut # (Auto) (1.4-6.5) K/uL Lymph # (Auto) (1.2-3.4) K/uL [place] # (Auto) (0.11-0.59) K/uL Eos # (Auto) (0-0.5) K/uL Baso # (Auto) (0-0.2) K/uL Immature Gran # (Auto) (0.00-0.02) K/uL PT (9.0-12.0) Seconds INR (0.9-1.1) APTT (21.0-31.0) Seconds PTT Ratio Sodium (136-145) mmol/L Potassium (3.5-5.1) mmol/L Chloride (98-107) mmol/L Carbon Dioxide (21-32) mmol/L Anion Gap (3-11) BUN (7-18) mg/dl Creatinine (0.6-1.4) mg/dl Est Cr Clr Drug Dosing ml/min Est GFR ( Amer) Est GFR (Non-Af Amer) BUN/Creatinine Ratio (10-20) Glucose (70-99) mg/dl Lactate 2.9 H* (0.4-2.0) mmol/L Calcium (8.5-10.1) mg/dl Magnesium (1.8-2.4) mg/dl Total Bilirubin (0.2-1) mg/dl AST (15-37) U/L ALT (12-78) U/L Alkaline Phosphatase (45-117) U/L Total Protein (6.4-8.2) gm/dl Albumin (3.4-5.0) gm/dl Globulin (2.5-4.0) gm/dl Albumin/Globulin Ratio (0.9-2) Specimen Hemolysis Urine Color Yellow Urine Appearance Clear (Clear) Urine pH 7.0 (4.5-7.5) Ur Specific [place] 1.018 (1.000-1.030) Urine Protein Negative (Negative) Urine Glucose (UA) Negative (Negative) Urine Ketones Trace H (Negative) Urine Blood Negative (Negative) Urine Nitrite Negative (Negative) Urine Bilirubin Negative (Negative) Urine Urobilinogen Negative (Negative) Ur Leukocyte Esterase Negative (Negative) COVID-19 Eval Order CovFluRsv at [facility] SARS-CoV-2 (PCR) (Negative) Influenza Type A (PCR) (Neg) Influenza Type B (PCR) (Neg) RSV (RT-PCR) (Neg) 08/20/20 08/20/20 Range/Units 08:48 10:31 WBC (4.8-10.8) K/uL RBC (4.7-6.1) M/uL Hgb (14.0-18.0) g/dL Hct (42-52) % MCV (80-100) fL MCH (25-34) pg MCHC (32-36) g/dL RDW Std Deviation (36.4-46.3) fL RDW Coeff of Karis (11.5-14.5) % Plt Count (130-400) K/uL MPV (7.4-10.4) fL Immature Gran % (Auto) % Neut % (Auto) % Lymph % (Auto) % [place] % (Auto) % Eos % (Auto) % Baso % (Auto) % Neut # (Auto) (1.4-6.5) K/uL Lymph # (Auto) (1.2-3.4) K/uL [place] # (Auto) (0.11-0.59) K/uL Eos # (Auto) (0-0.5) K/uL Baso # (Auto) (0-0.2) K/uL Immature Gran # (Auto) (0.00-0.02) K/uL PT (9.0-12.0) Seconds INR (0.9-1.1) APTT (21.0-31.0) Seconds PTT Ratio Sodium (136-145) mmol/L Potassium (3.5-5.1) mmol/L Chloride (98-107) mmol/L Carbon Dioxide (21-32) mmol/L Anion Gap (3-11) BUN (7-18) mg/dl Creatinine (0.6-1.4) mg/dl Est Cr Clr Drug Dosing ml/min Est GFR ( Amer) Est GFR (Non-Af Amer) BUN/Creatinine Ratio (10-20) Glucose (70-99) mg/dl Lactate 3.2 H* (0.4-2.0) mmol/L Calcium (8.5-10.1) mg/dl Magnesium (1.8-2.4) mg/dl Total Bilirubin (0.2-1) mg/dl AST (15-37) U/L ALT (12-78) U/L Alkaline Phosphatase (45-117) U/L Total Protein (6.4-8.2) gm/dl Albumin (3.4-5.0) gm/dl Globulin (2.5-4.0) gm/dl Albumin/Globulin Ratio (0.9-2) Specimen Hemolysis Urine Color Urine Appearance (Clear) Urine pH (4.5-7.5) Ur Specific [place] (1.000-1.030) Urine Protein (Negative) Urine Glucose (UA) (Negative) Urine Ketones (Negative) Urine Blood (Negative) Urine Nitrite (Negative) Urine Bilirubin (Negative) Urine Urobilinogen (Negative) Ur Leukocyte Esterase (Negative) COVID-19 Eval Order SARS-CoV-2 (PCR) NEGATIVE (Negative) Influenza Type A (PCR) Negative (Neg) Influenza Type B (PCR) Negative (Neg) RSV (RT-PCR) Negative (Neg) Administered Medications Sodium Chloride (Nss 1000ml) 1,000 mls @ 80 mls/hr IV .[id number] CAIN Stop: 08/21/20 01:39 Last Admin: 08/20/20 13:37 Dose: 80 mls/hr Documented by: [id number] Piperacillin Sod/Tazobactam (Sod 4.5 gm/ Dextrose) 120 mls @ 200 mls/hr IV ONE ONE; Protocol Stop: 08/20/20 14:05 Last Admin: 08/20/20 13:38 Dose: 200 mls/hr Documented by: [id number] Discontinued Medications Acetaminophen (Acetaminophen 500 Mg Tab) 1,000 mg PO NOW STA Stop: 08/20/20 08:39 Last Admin: 08/20/20 09:08 Dose: 1,000 mg Documented by: [id number] Azithromycin (Azithromycin 250 Mg Tab) 500 mg PO NOW ONE Stop: 08/20/20 10:15 Last Admin: 08/20/20 10:29 Dose: 500 mg Documented by: [id number] Ceftriaxone Sodium (Rocephin) 1,000 mg in 50 mls @ 100 mls/hr IV NOW STA Stop: 08/20/20 09:07 Last Infusion: 08/20/20 09:40 Dose: 0 mls/hr Documented by: [id number] Admin: 08/20/20 09:08 Dose: 100 mls/hr Documented by: [id number] Sodium Chloride (Nss 1000ml) 1,000 mls @ 999 mls/hr IV .Q1H1M ONE Stop: 08/20/20 09:38 Last Infusion: 08/20/20 11:33 Dose: 0 mls/hr Documented by: [id number] Admin: 08/20/20 08:48 Dose: 999 mls/hr Documented by: [id number] Cefepime HCl (Maxipime) 2,000 mg in 20 mls @ 5 mls/min IV NOW STA; Protocol Stop: 08/20/20 10:15 Last Admin: 08/20/20 10:30 Dose: 5 mls/min Documented by: [id number] Sodium Chloride (Nss 1000ml) 1,000 mls @ 999 mls/hr IV .Q1H1M ONE Stop: 08/20/20 11:24 Last Infusion: 08/20/20 12:47 Dose: 0 mls/hr Documented by: [id number] Admin: 08/20/20 11:33 Dose: 999 mls/hr Documented by: [id number] Discharge Plan Visit Data Chief Complaint: Shortness of Breath/Dyspnea Stated Complaint: SHORT OF BREATH, SEVERE SHAKES ED Provider: Parminder Purvis Discharge Problem: SIRS (systemic inflammatory response syndrome), Leukocytosis, Febrile, URI (upper respiratory infection) Patient Disposition: Admitted As Inpatient Discharge Instructions Interventions: ED Discharge Assessment Last Done: 08/20/20 12:46 Discharge Problem: Leukocytosis Qualifiers: Leukocytosis type: unspecified Qualified Code(s): D72.829 - Elevated white blood cell count, unspecified Febrile Qualifiers: Fever type: unspecified Qualified Code(s): R50.9 - Fever, unspecified URI (upper respiratory infection) Qualifiers: URI type: unspecified URI Qualified Code(s): J06.9 - Acute upper respiratory infection, unspecified
[2020-08-20 09:09] LABS: Basophils # (auto) 0.02 K/uL (0-0.2); Basophils % (auto) 0.1 %; Eosinophils # (auto) 0.55 K/uL (0-0.5); Eosinophils % (auto) 2.9 %; Hematocrit (blood only) 40.1 % (42-52); Hemoglobin 13.9 g/dL (14.0-18.0); Immature Granulocytes # (auto) 0.04 K/uL (0.00-0.02); Immature Granulocytes % (auto) 0.2 %; Lymphocytes # (auto) 0.58 K/uL (1.2-3.4); Mean Corpuscular Hemoglobin 32.9 pg (25-34); Mean Corpuscular Hgb Conc 34.7 g/dL (32-36); Mean Corpuscular Volume 94.8 fL (80-100); Mean Platelet Volume 9.6 fL (7.4-10.4); Monocytes # (auto) 1.61 K/uL (0.11-0.59); Monocytes % (auto) 8.4 %; Neutrophils # (auto) 16.31 K/uL (1.4-6.5); Neutrophils % (auto) 85.4 %; Platelet Count 234 K/uL (130-400); RDW Coefficient of Variation 13.5 % (11.5-14.5); RDW Standard Deviation 46.4 fL (36.4-46.3); Red Blood Count 4.23 M/uL (4.7-6.1); White Blood Count 19.11 K/uL (4.8-10.8)
[2020-08-20 09:13] LABS: Appearance Urine Clear (Clear); Bilirubin Urine Negative (Negative); Blood Urine Negative (Negative); Color Urine Yellow; Glucose Urine UA Negative (Negative); Ketones Urine Trace (Negative); Leukocyte Esterase Urine Negative (Negative); Nitrite Urine Negative (Negative); Protein Urine Negative (Negative); Specific Gravity Urine 1.018 (1.000-1.030); Urobilinogen Urine Negative (Negative)
[2020-08-20 09:28] LABS: INR 1.1 (0.9-1.1); Partial Thromboplastin Ratio 0.9; Partial Thromboplastin Time 24.4 Seconds (21.0-31.0); Prothrombin Time 10.9 Seconds (9.0-12.0)
--- NOTE | 2020-08-20 09:42 | XRay Report ---
XR chest 1V portable HISTORY: SEPSIS COMPARISON: Chest 04/29/2019. FINDINGS: No pneumothorax. No pleural effusions. The heart is top normal in size. No new focal lung c onsolidations to suggest pneumonia. No evidence for pulmonary edema. IMPRESSION: No significant change compared to the prior study. No acute process. ACT 112: Negative or not required by law. Electronically signed by: Reginald Shah M.D. 08/20/2020 9:41 AM
[2020-08-20 09:58] LABS: Albumin Level 3.8 gm/dl (3.4-5.0); BUN Creatinine Ratio 17.3 (10-20); Bilirubin,Total 0.9 mg/dl (0.2-1); Calcium 9.5 mg/dl (8.5-10.1); Est GFR (African American) 41.7; Magnesium 1.9 mg/dl (1.8-2.4); Potassium 4.3 mmol/L (3.5-5.1); Total Protein 7.8 gm/dl (6.4-8.2)
[2020-08-20 10:00] LABS: Influenza A virus by PCR Negative (Neg); Influenza B virus by PCR Negative (Neg); RSV by PCR Negative (Neg); SARS CoV2 RNA(COVID-19) InHosp NEGATIVE (Negative)
[2020-08-20] MEDS ORDERED: CEFEPIME 2,000 MG/20 ML VIAL IV STA (10:12)
[2020-08-20] MEDS ORDERED: AZITHROMYCIN 250 MG TAB PO ONE (10:14)
--- NOTE | 2020-08-20 10:27 | History & Physical Report ---
Date of Service August 20, 2020 Assessment & Plan (1) Sepsis: Patient is concern for sepsis with tachycardia and tachypnea. He also is a leukocytosis of 19.1 and lactic acid of 2.9. Exact site is slightly unclear although his pulmonary symptoms as chest x-ray is negative. negative CT scan of the chest and abdomen pelvis. will send urine culture despite negative ua given history of prostate issues, Initiating Zosyn therapy at this time cultures were obtained sputum culture be ordered Nursing called regarding progressive redness to lower extremity, will check doppler but should be covered by Zosyn for diabetic cellulitis (2) Atrial fibrillation: Issue atrial fibrillation, typical on Xarelto. Controlled with diltiazem 240 extended release these medications will be continued (3) Type 2 diabetes mellitus: Patient typically is on glimepiride and Metformin. These are held in the face of acute illness he will be on sliding scale insulin considering adding basal rate insulin if needed pharmacy glycemic consultation (4) CKD (chronic kidney disease), stage III: History of chronic kidney disease with diabetes on furosemide avoid nephrotoxic agents creatinine is stable at this time 1.68 (5) Obstructive sleep apnea: Provide no noninvasive positive pressure ventilation for night he did not bring his machine will use our machine last recorded check includes a CPAP pressure 17 (6) Chronic diastolic heart failure: He appears stable at this time he will be both on diltiazem and torsemide, given concens for sepsis will have one additional liter (7) DVT prophylaxis: Xarelto DVT prophylaxis at this point time Patient wishes to be a full code History of Present Illness Primary Care Provider: Ye Bzaan MD Patient presents with weakness and cough productive yellow sputum plus shortness of breath. Cough started on Saturday. He is in A. fib RVR is a history of the same. No urinary symptoms with history of prostate cancer. Patient has a leukocytosis of 19 with a leftward shift lactic acid 2.9 chest x-ray does not show an overt infiltrate Covid testing is negative. LFTs are normal. 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 - Allergies Allergy/AdvReac Type Severity Reaction Status Date / Time nystatin Allergy Mild Rash Verified 08/11/20 11:52 triamcinolone Allergy Mild Rash Verified 08/11/20 11:52 Home Medications Medication Instructions Recorded Confirmed Type Centrum Silver 1 tab PO QAM 10/22/18 08/11/20 History aspirin 81 mg PO QAM 10/22/18 08/11/20 History inhalational spacing device #1 ea 05/02/19 08/11/20 Rx metformin 500 mg tablet 1,000 mg PO DAILY #180 tab 10/09/19 08/11/20 Rx blood sugar diagnostic #100 ea 10/15/19 08/11/20 Rx albuterol sulfate 90 mcg/actuation See Rx Instructions .ROUTE 01/12/20 08/11/20 Rx aerosol inhaler .COMPLEX PRN #8.5 gm ascorbate calcium (vitamin C) 500 500 mg PO DAILY 01/12/20 08/11/20 History mg tablet cholecalciferol (vitamin D3) 1 tab PO DAILY 01/12/20 08/11/20 History torsemide 20 mg tablet 20 mg PO QAM #90 tab 03/14/20 08/11/20 Rx atorvastatin 10 mg tablet 10 mg PO HS #90 tab 06/08/20 08/11/20 Rx diltiazem HCl 240 mg 240 mg PO QAM #180 cap 06/28/20 08/11/20 Rx capsule,extended release 24 hr glimepiride 4 mg tablet 4 mg PO QAM #180 tab 06/28/20 08/11/20 Rx rivaroxaban 15 mg tablet 15 mg PO QPM #90 tab 07/21/20 08/11/20 Rx Past Med/Surg History Medical History (Updated 08/20/20 @ 13:52 by Parminder Purvis DO) Anemia Atrial fibrillation reason for xarelto--follows with [facility] Bowel habit changes Constipation Diabetes mellitus, type 2 Hearing deficit History of colon polyps History of prostate cancer 1996--sx Hyperlipidemia Hypertension 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 Shortness of breath on exertion Sleep apnea CPAP Surgical History History of bilateral cataract extraction History of colonoscopy History of endoscopic sinus surgery History of open reduction and internal fixation (ORIF) procedure right femur--hardware in place History of prostate biopsy x2--malignant History of prostatectomy 1996 d/t cancer History of tooth extraction Family History Father Pure hypercholesterolemia COPD (chronic obstructive pulmonary disease) Hypertension Mother Cancer Sister Hypertension Brother Hypertension Ulcerative colitis Other No family history of adverse response to anesthesia Social History Smoking Status: Never smoker Tobacco Type: Cigarettes Second Hand Exposure: No (father smoked); Hx Alcohol Use: No Hx Substance Use: No Preferred Language: Luxembourger Communication Ability: Effective Visual Impairment: Limited Hearing Ability: Use of Hearing Aid Senior Accounts Payable Specialist Required: No Beliefs That Will Affect Care: Spiritual marital status: Current Living Situation: Spouse current occupational status: retired Feels Safe at Home: Yes Safety Concerns: Feels Safe At This Time Childhood Exposure to Second-Hand Smoke: Yes caffeine: Yes Dental Care, Regularly: Yes Physical Activity Frequency: 3-4 Times per Week Physical Activity Frequency Comment: yardwork Seatbelt Use: always Sunscreen Use: Yes Do you think of yourself as: straight/heterosexual Assistive Devices: Cane, CPAP and Hearing Aid - Bilateral Review of Systems Review of Systems: Mild distress and fatigue Patient extremely hard of hearing no headache, blurry or double vision no speech or swallowing issues Dull chest pain only associated with coughing no shortness of breath, productive of yellow sputum Left lower quadrant abdominal pain without associated nausea vomiting or diarrhea no dysuria, hematuria or frequency no focal joint pain on a daily lower extremity swelling no back pain, CVA tenderness or radicular pain Skin is signs of actinic keratoses no focal signs of weakness or numbness or altered sensation no complaints of anxiety or depression.. Physical Exam Physical Exam: The patient appeared well nourished and normally developed. Vital signs as documented. Head exam is normocephalic atraumatic no scleral icterus patient extremely hard of hearing Neck is without JVD, thyromegaly, or carotid bruits. Lungs are clear to auscultation, no focal loss of breath sounds Cardiac exam, Rhythm is regular.. No murmurs, rubs or gallops. Abdominal exam reveals normal bowel sounds, very minor left lower quadrant and suprapubic tenderness Extremities are 1+ edematous and left vera there is an actinic keratosis on which he says is old both pedal pulses are present Neurologic exam is alert and oriented, no focal loss of strength or sensation Skin is with actinic keratoses Psychologically is without concerns for anxiety or depression concern for some mild memory loss Results & Data Results & Data ([facility]) Vital Signs (Past 12 Hours) Vital Signs Temp Pulse Pulse Resp BP BP Pulse Ox 08/20/20 10:08 98.4 F 104 H 25 H 149/80 H 98 08/20/20 08:59 108 H 22 182/89 H 92 08/20/20 08:40 95 08/20/20 08:03 101.3 F H 99 H 20 161/86 H 95 PG Care Time/CCT Total # of Minutes Spent Total Time Spent with Patient: Total time spent is greater than 50% in coordination of care (as documented) at patient's floor/unit and/or counseling patient: Coding Level of Care Code 85934 Initial Inpt Care Lvl 3 Diagnoses Sepsis A41.9 Atrial fibrillation I48.91 Type 2 diabetes mellitus E11.22; N18.3 Chronic kidney disease stage: stage 3 (moderate) Diabetes mellitus complication detail: with chronic kidney disease Diabetes mellitus complication status: with kidney complications Diabetes mellitus skilled nursing insulin use: without marine oil terminal superintendent use CKD (chronic kidney disease), stage III N18.3 Obstructive sleep apnea G47.33 Chronic diastolic heart failure I50.32 DVT prophylaxis Z29.9 (1) Type 2 diabetes mellitus Chronic kidney disease stage: stage 3 (moderate) Diabetes mellitus complication detail: with chronic kidney disease Diabetes mellitus complication status: with kidney complications Diabetes mellitus marine oil terminal superintendent insulin use: without skilled nursing use Qualified Code(s): E11.22 - Type 2 diabetes mellitus with diabetic chronic kidney disease; N18.3 - Chronic kidney disease, stage 3 (moderate)
--- NOTE | 2020-08-20 13:06 | CT Scan Report ---
CT chest diagnostic wo con CT DOSE: 1781.87 mGy.cm HISTORY: Shortness of breath. eval for pneumonia TECHNIQUE: Multiaxial CT images of the chest were performed without contrast. A dose lowering techni que was utilized adhering to the principles of ALARA. COMPARISON: Chest CT 10/06/2015. FINDINGS: No pneumothorax. No pleural effusions. Mild respiratory motion artifact is noted. The centr al airways are patent. A few small bibasilar linear densities consistent with subsegmental atelectasi s. Otherwise, no focal lung consolidations to suggest pneumonia. No suspicious lytic or blastic osseo us lesions. Subcentimeter mediastinal lymph nodes do not meet CT criteria for pathologic involvement. Normal caliber esophagus. The heart is normal in size. There is a normal caliber thoracic aorta. Ple ase refer to the same day abdomen and pelvis CT for further evaluation of the abdominal structures. N o pericardial effusion. IMPRESSION: No focal lung consolidations to suggest pneumonia. ACT 112: Negative or not required by law. Electronically signed by: Reginald Shah M.D. 08/20/2020 1:05 PM
[2020-08-20] MEDS ORDERED: METOPROLOL TARTRATE 1 MG/ML VIAL IV PRN (13:10)
[2020-08-20] MEDS ORDERED: GLUCAGON FOR INJ 1 MG VIAL SQ PRN (13:10)
[2020-08-20] MEDS ORDERED: ALUMINUM/MAGNESIUM SUSP 30 ML UDC PO PRN (13:10)
[2020-08-20] MEDS ORDERED: GLUCOSE 10 TABS/TUBE PO PRN (13:10)
[2020-08-20] MEDS ORDERED: PIPERACILL/TAZOBAC CONSULT ACTIVE PRN (13:10)
[2020-08-20] MEDS ORDERED: DEXTROSE 50% 50 ML SYRINGE IV PRN (13:10)
[2020-08-20] MEDS ORDERED: GLUCOSE 40% GEL 15 GM TUBE PO PRN (13:10)
[2020-08-20] MEDS ORDERED: SODIUM CHLORIDE 0.9% 1000ML 1,000 ML IV SCH (13:10)
[2020-08-20] MEDS ORDERED: ACETAMINOPHEN 325 MG TAB PO PRN (13:10)
[2020-08-20] MEDS ORDERED: CARBOHYDRATES FOR HYPOGLYCEMIA PO PRN (13:10)
[2020-08-20] MEDS ORDERED: ONDANSETRON INJ 2 MG/ML 2 ML VIAL IV PRN (13:10)
--- NOTE | 2020-08-20 13:13 | CT Scan Report ---
ABDOMEN AND PELVIS CT WITH ORAL CONTRAST CT DOSE: HISTORY: Right upper quadrant abdominal pain. eval for cholecystitis TECHNIQUE: Multiaxial CT images of the abdomen and pelvis were performed following the use of oral co ntrast. A dose lowering technique was utilized adhering to the principles of ALARA. COMPARISON STUDY: Abdomen and pelvis CT 02/19/2015. FINDINGS: No pneumoperitoneum. No pneumatosis. Postoperative changes noted within the proximal right femur. No suspicious lytic or blastic osseous lesions. The unenhanced liver, spleen, adrenal glands, and pancreas are unremarkable. Mild bilateral perinephric edema which is likely chronic. No renal or ureteral stones. No hydronephrosis. The bladder is within normal limits. Prior prostatectomy and pelv ic lymph node dissection. Mild inflammatory change adjacent to a few prominent external iliac/common femoral lymph nodes. These have slightly increased in size. Dominant lymph node measures 15 x 8 mm. N o left pelvic lymphadenopathy. Small fat-containing bilateral inguinal hernias are noted. No retroper itoneal lymphadenopathy. Normal caliber abdominal aorta. The gallbladder slightly distended. No gallb ladder wall thickening or adjacent inflammatory change. No definite gallstones identified by CT. No b owel wall thickening or obstruction. Normal appendix. IMPRESSION: 1. Slightly distended gallbladder. However, no gallbladder wall thickening or pericholecystic inflamm atory change identified. 2. No bowel wall thickening or obstruction. 3. Normal appendix. 4. No hydronephrosis. 5. A few borderline-enlarged right external iliac/common femoral lymph nodes with adjacent fat strand ing which have increased in size in the interval. These are of uncertain clinical significance. Consi simon 3-6 month follow-up to ensure resolution. 6. Prior prostatectomy. ACT 112: Negative or not required by law. Electronically signed by: Reginald Shah M.D. 08/20/2020 1:12 PM
[2020-08-20] MEDS ORDERED: PHARMACY GLYCEMIC MGMT CONSULT PRN (13:21)
--- NOTE | 2020-08-20 13:24 | Electrocardiogram Report ---
Test Reason : Blood Pressure : / mmHG Vent. Rate : 119 BPM Atrial Rate : 136 BPM P-R Int : 000 ms QRS Dur : 124 ms QT Int : 344 ms P-R-T Axes : 000 035 004 degrees QTc Int : 483 ms Atrial fibrillation with rapid ventricular response Right bundle branch block Abnormal ECG When compared with ECG of 29-APR-2019 03:25, No significant change was found Confirmed by Song Head ([id number]) on 08/20/2020 1:24:54 PM Referred By: REFERRED SELF Confirmed By:Song Head
[2020-08-20] MEDS ORDERED: PIPERACILLIN/TAZOBACTAM 4.5 GM in DEXTROSE 5% 100 ML IV ONE (13:30)
--- NOTE | 2020-08-20 13:36 | Pharmacy Report ---
Pharmacy Glycemic Short Note 2 - Date of Service August 20, 2020 - Glycemic Short BSG Results (Last 24 hours): 08/20/20 08:48 Glucose 178 H OUTPATIENT ANTIDIABETIC REGIMEN: * Glimepiride 4mg PO QAM * Metformin 1,000mg PO daily * A1c = 7% on 03/25/20 * Updated A1c pending for 08/21/20 w/ AM labs ASSESSMENT: * 85yo T2DM male with assumed adequate outpatient control per recent A1c. However, value from February 2020 is outdated- repeat pending for 08/21 w/ AM labs,. * Pt is maintained on oral antidiabetic agents as an outpatient * Oral agents are not recommended for inpatient use d/t drug interactions, changing PO intake, and difficulty titrating for acute hyper/hypoglycemia. ADA recommends re-initiating outpatient oral agents 1-2 days prior to discharge if/when appropriate if they were held on admission. * Will hold oral agents for admission and utilize SQ basal bolus insulin regimen which is the recommended regimen for inpatient glycemic control. * Will initiate weight based insulin dosing for insulin monika patient (wt & st = 2) and titrate based on BSG trends. * Unsure when patient last took his metformin and glimepiride - therefore will dose conservatively today and titrate after 24hrs of BSG data. PLAN FOR INPATIENT GLYCEMIC CONTROL: * Hold outpatient oral diabetes medications * Basal insulin * Lantus SQ HS- dose based on BSG * BSG below 140 mg/dl --> 0 units * BSG 140-180 mg/dl --> 10 units * BSG above 180 mg/dl --> 15 units * Bolus insulin * NovoLog per scale ACHS or Q6hrs while NPO * Goal Range: Low 90 mg/dL - High 140 mg/dL * Correction Factor: 25 mg/dL/unit * Nutritional / Prandial insulin per carb ratio of 1 unit per 9 grams CHO consumed PLAN FOR DISCHARGE: * TBD based on updated A1c
[2020-08-20] MEDS: INSULIN ASPART 100 UNITS/ML 3 ML PEN SC SCH ×3 (14:00→20:17)
[2020-08-20] MEDS: RIVAROXABAN 15 MG TAB PO SCH (17:12)
[2020-08-20] MEDS: TORSEMIDE 20 MG TAB PO SCH (19:39)
[2020-08-20] MEDS: ATORVASTATIN 10 MG TAB PO SCH (19:39)
[2020-08-20] MEDS: dilTIAZem HCL 240 MG CAPCR PO SCH (19:39)
[2020-08-20] MEDS: ASPIRIN 81 MG ECTAB PO SCH (19:40)
[2020-08-20] MEDS: PIPERACILLIN/TAZOBACTAM 3.375 GM in DEXTROSE 5% 100 ML IV SCH (20:16)
[2020-08-20] MEDS ORDERED: INSULIN GLARGINE SOLOSTAR 100 UNITS/ML 3 ML PEN SC SCH (21:00)
[2020-08-21] MEDS: PIPERACILLIN/TAZOBACTAM 3.375 GM in DEXTROSE 5% 100 ML IV SCH ×3 (05:04→21:01)
[2020-08-21 07:03] LABS: Hematocrit (blood only) 37.6 % (42-52); Hemoglobin 12.5 g/dL (14.0-18.0); Mean Corpuscular Hgb Conc 33.2 g/dL (32-36); Mean Corpuscular Volume 96.2 fL (80-100); Mean Platelet Volume 9.6 fL (7.4-10.4); Platelet Count 178 K/uL (130-400); RDW Coefficient of Variation 13.8 % (11.5-14.5); RDW Standard Deviation 47.8 fL (36.4-46.3); Red Blood Count 3.91 M/uL (4.7-6.1); White Blood Count 13.55 K/uL (4.8-10.8)
[2020-08-21 07:37] LABS: Calcium 8.4 mg/dl (8.5-10.1); Creatinine Clr Calc Pharmacy 38.1 ml/min; Est GFR (African American) 47.8; Est GFR (Non-African American) 41.3; Potassium 3.3 mmol/L (3.5-5.1)
[2020-08-21] MEDS: INSULIN ASPART 100 UNITS/ML 3 ML PEN SC SCH ×4 (08:00→21:04)
[2020-08-21] MEDS: ASPIRIN 81 MG ECTAB PO SCH (08:02)
[2020-08-21] MEDS: dilTIAZem HCL 240 MG CAPCR PO SCH (08:02)
[2020-08-21] MEDS: TORSEMIDE 20 MG TAB PO SCH (08:02)
--- NOTE | 2020-08-21 08:19 | Ultrasound Report ---
RIGHT LOWER EXTREMITY VENOUS DOPPLER HISTORY: Right leg swelling. COMPARISON STUDY: None. FINDINGS: There is normal compressibility, flow, and augmentation within the right lower extremity de ep venous system. IMPRESSION: No DVT within the right lower extremity ACT 112: Negative or not required by law. Electronically signed by: Reginald Shah M.D. 08/21/2020 8:17 AM
--- NOTE | 2020-08-21 10:33 | Hospitalist Progress Note ---
Date of Service August 21, 2020 Assessment & Plan (1) Sepsis: 85-year-old male past medical history significant for chronic diastolic heart failure, CKD stage III, DM 2, A. fib on rivaroxaban admitted for sepsis secondary to right lower extremity cellulitis. Sepsis secondary to right lower extremity cellulitis: -On presentation with complaints of shortness of breath, productive cough, weakness. -CXR and CT chest without findings suggestive of pneumonia. -COVID-19 testing negative. -WBC count initially elevated to 19 -> 13.55 this AM. -Lactate 2.9 -> 3.2 -> 2.0 with IV fluids and antibiotics; patient was started on Zosyn after blood and urine cultures were obtained. -IV fluids discontinued in favor of oral fluids. -No complaints of shortness of breath at this time, no lung findings on imaging or exam. Atrial fibrillation: -History of, on Xarelto and diltiazem 240 mg daily. -Continue the above. -No RVR this admission, but was mildly tachycardic to low 110s on admission. -Suspect initially elevated heart rate was due to sepsis, heart rate has improved. DM2: -Hold glimepiride and Metformin while admitted. -Lantus 5 units at bedtime, with SSI. Hypokalemia: -Potassium 3.3 this a.m.; repleted with 40 p.o. KCl and 20 IV K riders. -Repeat BMP in a.m. Femoral lymphadenopathy: -Incidentally noted on CTAP to have a few mildly enlarged right external iliac/common femoral lymph nodes with adjacent fat stranding. -3 to 6-month follow-up recommended to evaluate for resolution. -Suspect that this lymphadenopathy is due to RLE infection. Chronic diastolic heart failure: -Patient is prescribed 30 mg torsemide daily in outpatient setting per recent cardiology note. -Given recently resolved sepsis and tenuous fluid status will continue torsemide at 20 mg dosing daily. CKD stage III: -Patient's creatinine is at baseline. Will trend while admitted. ERENDIRA on CPAP: -Continue home CPAP. CODE STATUS: Full code FEN: DM2, low-sodium diet DVT prophylaxis: Xarelto Dispo: MedSurg with telemetry for IV antibiotics, telemetry monitoring given A. fib Hx and tachycardia (2) Cellulitis: (3) Chronic diastolic heart failure: (4) Hypertension: (5) Obstructive sleep apnea: (6) CKD (chronic kidney disease), stage III: (7) Type 2 diabetes mellitus: (8) Atrial fibrillation: Admission and Anticipated Discharge Date Admission Date: August 20, 2020 Supervising Physician Co-Signing Physician Notes Patient seen and examined independently of PGY-2 Dr. Coyle. Agree with history, exam findings, assessment and plan of care as outlined. In brief, Mr. Dwyer is an 85 year old male with history significant for afib, CKD, HFpEF, and DM admitted with sepsis secondary to cellulitis. Feels well today. No fevers or chills. Denies bothersome pain in the anterior right vera. Does report that he has seen Dr. Brink (derm) for recurrent scabs/lesions of the anterior vera in the past. Vital signs and nursing notes reviewed. Well appearing male. Heart is irregularly irregular. Lungs clear to auscultation. Right anterior vera: several thick keratotic lesions with surrounding erythema, increased warmth. Non-tender. Several thick actinic keratoses on bilateral LE. RLE vera are with area of erythema, warmth. No tenderness. 1. Sepsis. Hemodynamically stable. Lactate initially trended up (2.9-->3.2). Repeat lactate 2.0. Leukocytosis improving. Blood cultures without growth x 24 hours. Urine culture with <1k colonies. 2. Cellulitis of R anterior vera. Continue zosyn. Added daptomycin for MRSA coverage. 3. A Fib. Rate controlled. Continue home dilt. AC with xarelto. 4. CKD. At baseline. 5. HFpEF. not in exacerbation. Will need to monitor fluid status since he received fluid boluses in the ED. Continue with home atorvastatin, torsemide. 6. DM. A1C pending. holding home metformin and glimepiride. Appreciate glycemic consult recs. Dispo: pending clinical improvement. Subjective Patient without acute events overnight. No fevers since admission. No complaints of chest pain, SOB, nausea or vomiting, diarrhea, abdominal pain. Admits that he has had right lower extremity redness for many weeks, and does not recall if it has changed acutely lately. Review of Systems Review of Systems: All systems reviewed & are unremarkable except as noted in HPI & below Constitutional: no fever, no chills and no malaise Respiratory: no cough and no dyspnea Cardiovascular: no chest pain, no palpitations and no edema Gastrointestinal: no abdominal pain, no constipation and no diarrhea/loose stools Physical Exam Constitutional: WD/WN, vitals as above Respiratory: normal respiratory effort, lungs clear to auscultation Cardiovascular: RRR, no murmur, no edema Gastrointestinal (Abdomen): normal bowel sounds, soft, nontender, no hepatosplenomegaly Skin: Several thick actinic keratoses on bilateral LE. RLE vera are with area of erythema, warmth. No tenderness. Psychiatric: A+Ox3, euthymic affect Results & Data Results & Data ([facility]) Vital Signs (Past 12 Hours) Vital Signs Temp Pulse Pulse Resp BP BP Pulse Ox 08/21/20 08:24 36.9 C 103 H 18 127/78 95 08/21/20 08:00 99 H 08/21/20 04:10 36.5 C 97 H 18 115/69 94 Resident Activity Tracking Resident Involvement: Resident Care Provided Care Provided: Adult Hospital Medicine (1) Type 2 diabetes mellitus Chronic kidney disease stage: stage 3 (moderate) Diabetes mellitus complication detail: with chronic kidney disease Diabetes mellitus complication status: with kidney complications Diabetes mellitus nursing administrator insulin use: without nursing administrator use Qualified Code(s): E11.22 - Type 2 diabetes mellitus with diabetic chronic kidney disease; N18.3 - Chronic kidney disease, stage 3 (moderate) (2) CKD (chronic kidney disease), stage III Chronic kidney disease stage 3 subtype: stage 3b (GFR 30-44) Qualified Code(s): N18.32 - Chronic kidney disease, stage 3b (3) Atrial fibrillation Atrial fibrillation type: unspecified chronic Qualified Code(s): I48.20 - Chronic atrial fibrillation, unspecified (4) Cellulitis Laterality: right Site of cellulitis: extremity Site of cellulitis of extremity: lower extremity Qualified Code(s): L03.115 - Cellulitis of right lower limb (5) Sepsis Sepsis acute organ dysfunction status: without acute organ dysfunction Sepsis type: sepsis due to unspecified organism Qualified Code(s): A41.9 - Sepsis, unspecified organism (6) Hypertension Hypertension type: essential hypertension Qualified Code(s): I10 - Essential (primary) hypertension
--- NOTE | 2020-08-21 10:49 | Pharmacy Report ---
Pharmacy Glycemic Short Note 2 - Date of Service August 21, 2020 - Glycemic Short BSG Results (Last 24 hours): 08/20/20 08/20/20 08/20/20 13:41 16:49 20:15 Glucose POC Glucose 219 H 117 H 132 H 08/21/20 08/21/20 06:33 07:58 Glucose 153 H POC Glucose 162 H OUTPATIENT ANTIDIABETIC REGIMEN: * Glimepiride 4mg PO QAM * Metformin 1,000mg PO daily * A1c = 7% on 03/25/20 * Updated A1c pending for 08/21/20 w/ AM labs ASSESSMENT: 08/21: * Pt has received 12 units of insulin over the past 24hrs * 0 units of basal with Lantus * 12 units of bolus with NovoLog * BSGs 577-502-502-132-162 mg/dl * AM fasting BSG is slightly above goal range at 162 mg/dl. Basal insulin held last evening per scale for BSG of 132 mg/dl. Will add a small scheduled dose of basal insulin (5 units) and titrate based on BSG trends * Post-prandial BSGs in goal range. No changes needed. 08/20: * 85yo T2DM male with assumed adequate outpatient control per recent A1c. However, value from February 2020 is outdated- repeat pending for 08/21 w/ AM labs,. * Pt is maintained on oral antidiabetic agents as an outpatient * Oral agents are not recommended for inpatient use d/t drug interactions, changing PO intake, and difficulty titrating for acute hyper/hypoglycemia. ADA recommends re-initiating outpatient oral agents 1-2 days prior to discharge if/when appropriate if they were held on admission. * Will hold oral agents for admission and utilize SQ basal bolus insulin regimen which is the recommended regimen for inpatient glycemic control. * Will initiate weight based insulin dosing for insulin monika patient (wt & st = 2) and titrate based on BSG trends. * Unsure when patient last took his metformin and glimepiride - therefore will dose conservatively today and titrate after 24hrs of BSG data. PLAN FOR INPATIENT GLYCEMIC CONTROL: * Hold outpatient oral diabetes medications * Basal insulin * Lantus 5 units SQ HS * Bolus insulin: no change * NovoLog per scale ACHS or Q6hrs while NPO * Goal Range: Low 90 mg/dL - High 140 mg/dL * Correction Factor: 25 mg/dL/unit * Nutritional / Prandial insulin per carb ratio of 1 unit per 9 grams CHO consumed PLAN FOR DISCHARGE: * TBD based on updated A1c
[2020-08-21] MEDS ORDERED: POTASSIUM CHLORIDE CRTAB 20 MEQ TABCR PO STA (15:34)
[2020-08-21] MEDS: POTASSIUM CHLORIDE / WTR 10 MEQ/100 ML PLCT IV SCH ×2 (16:00→16:57)
[2020-08-21] MEDS: RIVAROXABAN 15 MG TAB PO SCH (16:00)
[2020-08-21] MEDS: DAPTOmycin 350 MG in SYRINGE 0 ML IV SCH (18:07)
[2020-08-21] MEDS ORDERED: ALBUTEROL HFA 8 GM INHALER INH PRN (20:31)
[2020-08-21] MEDS ORDERED: INSULIN GLARGINE SOLOSTAR 100 UNITS/ML 3 ML PEN SC SCH (21:00)
[2020-08-21] MEDS: ATORVASTATIN 10 MG TAB PO SCH (21:03)
[2020-08-22] MEDS: PIPERACILLIN/TAZOBACTAM 3.375 GM in DEXTROSE 5% 100 ML IV SCH ×3 (05:04→19:36)
[2020-08-22 05:51] LABS: Estimated Average Glucose 148 mg/dl; Hemoglobin A1C 6.8 % (4.5-5.6)
[2020-08-22 07:36] LABS: Hematocrit (blood only) 37.3 % (42-52); Hemoglobin 12.5 g/dL (14.0-18.0); Mean Corpuscular Hemoglobin 32.1 pg (25-34); Mean Corpuscular Hgb Conc 33.5 g/dL (32-36); Mean Corpuscular Volume 95.9 fL (80-100); Mean Platelet Volume 9.7 fL (7.4-10.4); Platelet Count 162 K/uL (130-400); RDW Coefficient of Variation 13.7 % (11.5-14.5); Red Blood Count 3.89 M/uL (4.7-6.1); White Blood Count 9.79 K/uL (4.8-10.8)
[2020-08-22 08:10] LABS: BUN Creatinine Ratio 13.9 (10-20); Creatinine Clr Calc Pharmacy 38.6 ml/min; Est GFR (African American) 48.6; Est GFR (Non-African American) 41.9; Potassium 3.4 mmol/L (3.5-5.1)
[2020-08-22] MEDS: INSULIN ASPART 100 UNITS/ML 3 ML PEN SC SCH ×4 (08:22→20:21)
[2020-08-22] MEDS: dilTIAZem HCL 240 MG CAPCR PO SCH (08:23)
[2020-08-22] MEDS: TORSEMIDE 20 MG TAB PO SCH (08:24)
[2020-08-22] MEDS: ASPIRIN 81 MG ECTAB PO SCH (08:24)
[2020-08-22] MEDS ORDERED: POTASSIUM CHLORIDE CRTAB 20 MEQ TABCR PO STA ×2 (08:42→17:29)
[2020-08-22] MEDS: ADVANCED PROBIOTIC 1250 MG CAPSULE PO SCH (09:45)
[2020-08-22] MEDS: RIVAROXABAN 15 MG TAB PO SCH (17:00)
[2020-08-22] MEDS ORDERED: FUROSEMIDE 20 MG in SYRINGE 0 ML IV ONE (17:30)
[2020-08-22] MEDS: DAPTOmycin 350 MG in SYRINGE 0 ML IV SCH (18:12)
[2020-08-22] MEDS: ALBUTEROL HFA 8 GM INHALER INH SCH (19:32)
[2020-08-22] MEDS: BENZONATATE 100 MG CAPSULE PO SCH (20:20)
[2020-08-22] MEDS: guaiFENesin 600 MG TABCR PO SCH (20:20)
[2020-08-22] MEDS: ATORVASTATIN 10 MG TAB PO SCH (20:21)
[2020-08-22] MEDS ORDERED: INSULIN GLARGINE SOLOSTAR 100 UNITS/ML 3 ML PEN SC SCH (21:00)
[2020-08-22] MEDS ORDERED: LATANOPROST 0.005% OP SOLN 2.5 ML BTL OPB SCH (21:00)
--- NOTE | 2020-08-22 21:19 | Hospitalist Progress Note ---
Date of Service August 22, 2020 Assessment & Plan (1) Sepsis: 2nd to RLE cellulitis. Sepsis resolved. (2) Cellulitis: RLE cellulitis - improving nicely. Cont zosyn/daptomycin today; transition to PO antibiotics in am - likely keflex + doxy for another 7-10 days. (3) Chronic diastolic heart failure: No pulmonary edema clinically. LE edema - give extra dose of IV lasix today. re-eval tomorrow. at discharge likely have him do 1.5 tabs of torsemide daily as directed by Lamont Arshad. (4) Hypertension: Continue home meds. BPs acceptable. (5) Obstructive sleep apnea: CPAP pressure 17 (6) CKD (chronic kidney disease), stage III: Stabe IIIb. Baseline Creatinine 1.4 to 1.6. BMP am. (7) Type 2 diabetes mellitus: Holding glimepiride and Metformin. On basal-bolus insulin while here. Appreciate pharmacy assistance. (8) Atrial fibrillation: Rates acceptable with [employer] CD. Continue xarelto for anticoagulation. (15mg daily renally dosed). (9) URI (upper respiratory infection): Recent CT chest w/o lower respiratory tract findings. Cough, congestion likely upper respiratory. Has h/o chronic sinusitis. Symptomatic care. (10) Glaucoma: xalantan eye drops - 1 drop each eye HS (11) DVT prophylaxis: xarelto PT, OT evals done - cleared for home updated at bedside hopefully home tomorrow Admission and Anticipated Discharge Date Admission Date: August 20, 2020 Subjective pt's was at bedside during my rounds. she reports - and he concurs - that RLE cellulitis is improved. he has chronic edema, RLE>LLE, and it is modestly worse than baseline. was to be taking 1.5 tabs of torsemide daily as directed by Lamont Arshad in cardiology. was doing this for 1-2 weeks before admission. also mentions he was placed on xalantan eye drops by Dr Siegel for glaucoma recently, 1 drop both eyes HS. has had cough since last . largely nonproductive. denies dyspnea. has chronic sinus troubles. tele - a.fib, rates 80s to low 100s. mostly <100. Review of Systems Constitutional: no fever, no chills and no anorexia Respiratory: + cough; no sputum production and no wheezing Cardiovascular: no chest pain Gastrointestinal: no abdominal pain Physical Exam Constitutional: well developed and well nourished; no acute distress and no altered mental status Eyes: periorbital puffiness b/l ENMT: external ear and nose normal, oropharynx normal Respiratory: Auscultation: + diminished lung sounds (bases); no crackles and no wheezes Cardiovascular: Rate/Rhythm: regular rate and + irregularly irregular Heart Sounds: normal S1 and normal S2; no murmur Vessels: posterior tibial pulses present and dorsalis pedis pulses present; no JVD Extremities: + edema (right leg, 2-3+; left leg, 1+. ) Gastrointestinal (Abdomen): normal bowel sounds, soft, nontender, no hepatosplenomegaly Skin: background of stasis changes b/l legs much worse on right vera. minimal cellulitis right vera. no warmth. no tenderness. actinic keratosis x 2 on anterior vera on right. Psychiatric: A+Ox3, euthymic affect Results & Data Results & Data ([facility]) Vital Signs (Past 12 Hours) Vital Signs Temp Pulse Resp BP Pulse Ox 08/22/20 20:06 36.5 C 76 16 120/79 95 08/22/20 19:34 76 16 95 08/22/20 16:03 36.5 C 73 18 126/80 97 08/22/20 11:00 36.4 C L 89 20 129/83 97 Laboratory Results Laboratory Results - last 24 hr 08/21/20 08/22/20 08/22/20 06:33 06:32 06:32 WBC 9.79 RBC 3.89 L Hgb 12.5 L Hct 37.3 L MCV 95.9 MCH 32.1 MCHC 33.5 RDW Std Deviation 48.0 H RDW Coeff of Karis 13.7 Plt Count 162 MPV 9.7 Sodium 136 Potassium 3.4 L Chloride 104 Carbon Dioxide 25 Anion Gap 7.0 BUN 21 H Creatinine 1.48 H Est Cr Clr Drug Dosing 38.6 Est GFR ( Amer) 48.6 Est GFR (Non-Af Amer) 41.9 BUN/Creatinine Ratio 13.9 Glucose 150 H POC Glucose Estimat Average Glucose 148 Hemoglobin A1c 6.8 H Calcium 9.0 Total Creatine Kinase 08/22/20 08/22/20 08/22/20 07:31 11:30 16:37 WBC RBC Hgb Hct MCV MCH MCHC RDW Std Deviation RDW Coeff of Karis Plt Count MPV Sodium Potassium Chloride Carbon Dioxide Anion Gap BUN Creatinine Est Cr Clr Drug Dosing Est GFR ( Amer) Est GFR (Non-Af Amer) BUN/Creatinine Ratio Glucose POC Glucose 156 H 200 H 130 H Estimat Average Glucose Hemoglobin A1c Calcium Total Creatine Kinase 08/22/20 08/22/20 17:16 20:11 WBC RBC Hgb Hct MCV MCH MCHC RDW Std Deviation RDW Coeff of Karis Plt Count MPV Sodium Potassium Chloride Carbon Dioxide Anion Gap BUN Creatinine Est Cr Clr Drug Dosing Est GFR ( Amer) Est GFR (Non-Af Amer) BUN/Creatinine Ratio Glucose POC Glucose 150 H Estimat Average Glucose Hemoglobin A1c Calcium Total Creatine Kinase 392 H PG Care Time/CCT Total # of Minutes Spent Total Time Spent with Patient: Total time spent is greater than 50% in coordination of care (as documented) at patient's floor/unit and/or counseling patient: Coding Level of Care Code 88680 Subseq Hosp Care Lvl 3 Diagnoses Sepsis A41.9 Sepsis acute organ dysfunction status: without acute organ dysfunction Sepsis type: sepsis due to unspecified organism Cellulitis L03.115 Laterality: right Site of cellulitis: extremity Site of cellulitis of extremity: lower extremity Chronic diastolic heart failure I50.32 Hypertension I10 Hypertension type: essential hypertension Obstructive sleep apnea G47.33 CKD (chronic kidney disease), stage III N18.32 Chronic kidney disease stage 3 subtype: stage 3b (GFR 30-44) Type 2 diabetes mellitus E11.22; N18.3 Chronic kidney disease stage: stage 3 (moderate) Diabetes mellitus complication detail: with chronic kidney disease Diabetes mellitus complication status: with kidney complications Diabetes mellitus [facility] insulin use: without terminal carman use Atrial fibrillation I48.20 Atrial fibrillation type: unspecified chronic URI (upper respiratory infection) J06.9 URI type: unspecified URI Glaucoma H40.9 DVT prophylaxis Z29.9 (1) Type 2 diabetes mellitus Chronic kidney disease stage: stage 3 (moderate) Diabetes mellitus complication detail: with chronic kidney disease Diabetes mellitus complication status: with kidney complications Diabetes mellitus terminal carman insulin use: without [facility] use Qualified Code(s): E11.22 - Type 2 diabetes mellitus with diabetic chronic kidney disease; N18.3 - Chronic kidney disease, stage 3 (moderate) (2) URI (upper respiratory infection) URI type: unspecified URI Qualified Code(s): J06.9 - Acute upper respiratory infection, unspecified (3) CKD (chronic kidney disease), stage III Chronic kidney disease stage 3 subtype: stage 3b (GFR 30-44) Qualified Code(s): N18.32 - Chronic kidney disease, stage 3b (4) Atrial fibrillation Atrial fibrillation type: unspecified chronic Qualified Code(s): I48.20 - Chronic atrial fibrillation, unspecified (5) Cellulitis Laterality: right Site of cellulitis: extremity Site of cellulitis of extremity: lower extremity Qualified Code(s): L03.115 - Cellulitis of right lower limb (6) Sepsis Sepsis acute organ dysfunction status: without acute organ dysfunction Sepsis type: sepsis due to unspecified organism Qualified Code(s): A41.9 - Sepsis, unspecified organism (7) Hypertension Hypertension type: essential hypertension Qualified Code(s): I10 - Essential (primary) hypertension
[2020-08-23] MEDS: ALBUTEROL HFA 8 GM INHALER INH SCH ×3 (01:05→13:05)
[2020-08-23] MEDS: PIPERACILLIN/TAZOBACTAM 3.375 GM in DEXTROSE 5% 100 ML IV SCH (03:53)
[2020-08-23 07:56] LABS: BUN Creatinine Ratio 14.9 (10-20); Calcium 8.9 mg/dl (8.5-10.1); Creatinine Clr Calc Pharmacy 35.7 ml/min; Est GFR (African American) 44.2; Est GFR (Non-African American) 38.2; Magnesium 2.2 mg/dl (1.8-2.4); Potassium 3.5 mmol/L (3.5-5.1)
[2020-08-23] MEDS: TORSEMIDE 20 MG TAB PO SCH (08:18)
[2020-08-23] MEDS: ADVANCED PROBIOTIC 1250 MG CAPSULE PO SCH (08:18)
[2020-08-23] MEDS: dilTIAZem HCL 240 MG CAPCR PO SCH (08:18)
[2020-08-23] MEDS: guaiFENesin 600 MG TABCR PO SCH (08:18)
[2020-08-23] MEDS: ASPIRIN 81 MG ECTAB PO SCH (08:19)
[2020-08-23] MEDS: INSULIN ASPART 100 UNITS/ML 3 ML PEN SC SCH ×2 (08:21→12:22)
[2020-08-23] MEDS: BENZONATATE 100 MG CAPSULE PO SCH ×2 (08:25→13:29)
[2020-08-23] MEDS ORDERED: cephALEXin 500 MG CAP PO SCH (09:00)
[2020-08-23] MEDS ORDERED: DOXYCYCLINE HYCLATE 100 MG CAP PO SCH (09:00)
[2020-08-23] MEDS ORDERED: POTASSIUM CHLORIDE CRTAB 20 MEQ TABCR PO STA (09:24)
[2020-08-23] MEDS ORDERED: TORSEMIDE 10 MG TAB PO ONE (09:30)
--- NOTE | 2020-08-23 13:33 | Discharge Summary ---
Date of Service date of admission - August 20, 2020 date of discharge - August 23, 2020 Admission HPI Per Admitting Provider 85yo male presents with weakness and cough productive of yellow sputum along with shortness of breath. Cough started on Saturday. He presented today with rapid a. fib. His a.fib is permanent. No urinary symptoms. Patient has a leukocytosis of 19 with a leftward shift. Lactic acid is 2.9. Chest x-ray does not show an overt infiltrate. Covid testing is negative. LFTs are normal. In the ER his temperature was 38.5 degrees. Cultures were drawn and he was given zosyn IV. Principal Diagnosis sepsis 2nd to RLE cellulitis Discharge Exam Constitutional well developed and well nourished; no acute distress and no altered mental status ENMT external ear and nose normal, oropharynx normal Respiratory Auscultation: + diminished lung sounds (bases); no crackles and no wheezes Cardiovascular Rate/Rhythm: regular rate and + irregularly irregular Heart Sounds: normal S1 and normal S2; no murmur Vessels: posterior tibial pulses present and dorsalis pedis pulses present; no J VD Extremities: + edema (right leg, 2-3+; left leg, 1+. ) Gastrointestinal (Abdomen) normal bowel sounds, soft, nontender, no hepatosplenomegaly Skin 2 large actinic keratoses on right vera; background of stasis dermatitis/stasis changes on right vera; mild erythema on mid-vera extending to ankle/proximal right foot dorsal surface; no warmth, no tenderness; occasional varicose veins b/l legs. Psychiatric A+Ox3, euthymic affect Discharge Data Allergies Allergy/AdvReac Type Severity Reaction Status Date / Time nystatin Allergy Mild Rash Verified 08/11/20 11:52 triamcinolone Allergy Mild Rash Verified 08/11/20 11:52 Consultations PT, OT Ordered Studies 08/20/20 10:23 CT abd pelvis oral con only Stat IMPRESSION: 1. Slightly distended gallbladder. However, no gallbladder wall thickening or pericholecystic inflammatory change identified. 2. No bowel wall thickening or obstruction. 3. Normal appendix. 4. No hydronephrosis. 5. A few borderline-enlarged right external iliac/common femoral lymph nodes with adjacent fat stranding which have increased in size in the interval. These are of uncertain clinical significance. Consider 3-6 month follow-up to ensure resolution. 6. Prior prostatectomy. 08/20/20 10:34 CT chest diagnostic wo con Stat - no pneumonia, effusions, or pathological lymphadenopathy. 08/20/20 18:15 US venous doppler LE RT Routine - no RLE DVT. Hospital Course (1) Sepsis: 2nd to RLE cellulitis. Sepsis resolved with broad-spectrum IV antibiotic therapy for the cellulitis. Blood and urine cultures were negative while hospitalized. COVID-19 testing was negative. (2) Cellulitis: RLE cellulitis - improved nicely with zosyn/daptomycin. Was transitioned to PO antibiotics on day of discharge. Will take combination of keflex + doxycycline for another 7 days post-discharge. I asked Mr Dwyer to f/u with his PCP in 3-4 days post-discharge to ensure the cellulitis continues to resolve. (3) URI (upper respiratory infection): CT chest w/o lower respiratory tract findings despite his c/o cough & dyspnea at time of admission. COVID-19 PCR was negative as was flu/RSV. Cough, congestion likely upper respiratory in location. He also has past h/o chronic sinusitis. If there was any element of acute sinusitis the antibiotics he received here and his discharge antibiotic course will suffice. (4) Chronic diastolic heart failure: No pulmonary edema clinically while hospitalized. He did receive extra lasix while here for his LE edema, however. At discharge I recommended 30mg of torsemide daily for his ongoing LE edema. Mr Lamont Arshad from cardiology had also advised the same. (5) Hypertension: Continue home meds. BPs acceptable while hospitalized. (6) Obstructive sleep apnea: CPAP pressure 17 (7) CKD (chronic kidney disease), stage III: Stabe IIIb. Baseline Creatinine 1.4 to 1.6. Cr 1.6 at discharge. (8) Type 2 diabetes mellitus: Continue glimepiride and Metformin. HbA1C this admission was 6.8%. (9) Atrial fibrillation: Rates acceptable with cardizem CD. Continue xarelto for anticoagulation. (15mg daily renally dosed). (10) Glaucoma: xalantan eye drops - 1 drop each eye HS Total Time Total Time Spent Total Time Spent (In Minutes): 45 Total Time Includes: Examination of the Patient, Discharge Planning and Medication Reconciliation Discharge Plan Discharge Items Patient Disposition: Home - Self-Care Reason For Visit: SEPSIS, Concern for right leg infection Discharge Diagnosis: 1. sepsis due to right leg skin infection (cellulitis) - resolving 2. cough / upper respiratory infection; CAT scan did not show pneumonia 3. atrial fibrillation 4. edema of legs, worse on right Activity: Resume your previous activity Non-emergency contact: Primary Care Provider Call non-emergency contact if: you have any medication questions, your symptoms worsen and you have a fever Follow-up/Referrals: Ye Bazan MD [Primary Care Provider] - 08/29/20 11:30 am (see Dr Bazan within 3 days for recheck of right leg skin infection) Diet: Carb Consistent or DM2 and Heart Healthy Addtl Attending Provider Instructions: Mr Dwyer, You were admitted to the hospital for sepsis due to right leg skin infection (also known as cellulitis). You improved nicely with IV antibiotics and time. The right leg doppler study did NOT show any blood clot. You also had an upper respiratory infection / cough. The CAT scan of your lungs did NOT show pneumonia. You received extra diuretics for your edema in the legs. I believe the edema is due to multiple causes including venous insufficiency (the veins in the legs are lazy/worn out and don't push the fluid up very well any longer), your diltiazem, the recent right leg infection, and the surgery on your right leg. Recommendations - 1. for right leg skin infection - * cephalexin 500mg twice daily for 7 days, first dose TONIGHT 08/23/20 * doxycycline 100mg twice daily for 7 days, first dose TONIGHT * the doxycycline occasionally causes heartburn * it can also cause a rash if you get a suntan; thus, cover up if you are in the sun over the next week 2. to prevent diarrhea from #1 - * probiotics 2 capsules daily for 10 days ; start today 3. for edema/fluid - * take 1.5 tablets of torsemide daily until the edema is improved * once it is better you can go back to 1 tablet a day * ok to purchase [id number] compression stockings/support hose and wear these on both legs; this does help with fluid * elevate your legs while watching TV, reading, or doing quiet activities 4. to keep your potassium level normal - * take potassium 10meq daily 5. for cough - * tessalon pearles 100mg every 8 hours as needed 6. see Dr Bazan this week for recheck of the right leg Return to [facility] if - * you have fever over 100 degrees * you have severe diarrhea * your right leg skin infection worsens * you have shortness of breath * any other concerns Continue to feel better! -Dr Bhatt Pending Studies at Discharge: No Stand-Alone Forms: My [facility], Smoking Cessation Medications and DC Order Prescriptions: New latanoprost 0.005 % Drops 1 drp OPB HS Qty: 1 RF: 0 doxycycline hyclate 100 mg Capsule 100 mg PO BID 7 Days Qty: 14 RF: 0 benzonatate [Tessalon Perles] 100 mg Capsule 100 mg PO TID PRN (Reason: cough) Qty: 20 RF: 0 cephalexin 500 mg Capsule 500 mg PO BID 7 Days Qty: 14 RF: 0 Advanced Probiotic 625 mg (10 billion cell) Capsule 2 cap PO DAILY 10 Days Qty: 20 RF: 0 potassium chloride 10 mEq tablet extended release 10 meq PO DAILY Qty: 30 RF: 0 Continued (DME) blood sugar diagnostic [ApceraTouch Ultra Blue Test Strip] Strip See Rx Instructions .ROUTE .MEDSUPPLY Qty: 100 RF: 3 atorvastatin 10 mg tablet 10 mg PO HS Qty: 90 RF: 3 diltiazem HCl 240 mg capsule,extended release 24hr 240 mg PO QAM Qty: 180 RF: 3 glimepiride 4 mg tablet 4 mg PO QAM Qty: 180 RF: 3 Xarelto 15 mg tablet 15 mg PO QPM Qty: 90 RF: 3 metformin 500 mg tablet 1,000 mg PO DAILY Qty: 180 RF: 3 (DME) Aerochamber MV spacer See Rx Instructions .ROUTE .MEDSUPPLY Qty: 1 RF: 0 ascorbate calcium (vitamin C) 500 mg tablet 500 mg PO DAILY RF: 0 cholecalciferol (vitamin D3) 1 tab PO DAILY RF: 0 albuterol sulfate 90 mcg/actuation HFA aerosol inhaler See Rx Instructions .ROUTE .COMPLEX PRN (Reason: shortness of breath or wheezing) Qty: 8.5 RF: 11 aspirin 81 mg Tablet,Delayed Release (Dr/Ec) 81 mg PO QAM RF: 0 Centrum Silver 0.4-300-250 mg-mcg-mcg Tablet 1 tab PO QAM RF: 0 Changed torsemide 20 mg tablet 30 mg PO QAM Qty: 45 RF: 1 Discharge Orders: Discharge Order (Routine); Ordered 08/23/20 Ordered By: Jacob Grewal/Other Patient Handouts: Managing Type 2 Diabetes Admission Data Admit Date/Time: 08/20/20 11:01 Attending Provider: Jacob Bhatt Admit Provider: Tray Maza Primary Care Provider: Ye Bazan Other Providers: Tray Maza Other Interventions: Discharge Summary Assessment (RN) Last Done: 08/23/20 14:28 Coding Level of Care Code D/C Day Management >30 mins Diagnoses Sepsis A41.9 Sepsis acute organ dysfunction status: without acute organ dysfunction Sepsis type: sepsis due to unspecified organism Cellulitis L03.115 Laterality: right Site of cellulitis: extremity Site of cellulitis of extremity: lower extremity URI (upper respiratory infection) J06.9 URI type: unspecified URI Chronic diastolic heart failure I50.32 Hypertension I10 Hypertension type: essential hypertension Obstructive sleep apnea G47.33 CKD (chronic kidney disease), stage III N18.32 Chronic kidney disease stage 3 subtype: stage 3b (GFR 30-44) Type 2 diabetes mellitus E11.22; N18.3 Chronic kidney disease stage: stage 3 (moderate) Diabetes mellitus complication detail: with chronic kidney disease Diabetes mellitus complication status: with kidney complications Diabetes mellitus skilled nursing insulin use: without terminal manager use Atrial fibrillation I48.20 Atrial fibrillation type: unspecified chronic Glaucoma H40.9
== END 2020-08-23 15:21 | disposition home or self-care (01) | DRG 872 ==
LOC: ED 07:58 → SUATTDRO 11:01 → 2N 11:01